=== PATIENT | female | born 1945 | race Caucasian/White ===

== ENCOUNTER 2017-10-24 11:28 | Inpatient (IN) | payer MEDICARE, MEDICAID ==
[~2017-10-24] VITALS: Ht 152.4 cm; Wt 47.7 kg
[~2017-10-24 11:28] MED LIST: ALBU18HF2; BACL10TA2; CYAN100097 PO; HYDR-3965 PO; LEVO500T2 PO; NITR0.4T48; VENL75CA61
[2017-10-24 12:04] LABS: BASOPHILS % (AUTO) 0.4 % (0-1); EOSINOPHILS # (AUTO) 0.1 X10'3 (0-0.9); HEMATOCRIT 30.7 % (35.0-45.0); HEMOGLOBIN 10.4 g/dl (12.0-16.0); LYMPHOCYTES # (AUTO) 1.6 X10'3 (1.1-4.8); LYMPHOCYTES % (AUTO) 18.8 % (21-51); MEAN CORPUSCULAR HEMOGLOBIN 29.7 PG (27.0-31.0); MEAN CORPUSCULAR HGB CONC 33.7 % (33.0-36.5); MEAN CORPUSCULAR VOLUME 88.2 FL (78-98); MEAN PLATELET VOLUME 7.7 FL (7.4-10.4); MONOCYTES # (AUTO) 0.8 X10'3 (0-0.9); NEUTROPHILS # (AUTO) 5.9 X10'3 (1.8-7.7); NEUTROPHILS % (AUTO) 70.8 % (42-75); PLATELET COUNT 232 X10'3 (140-440); RED BLOOD COUNT 3.49 X10'6 (4.20-5.60); RED CELL DISTRIBUTION WIDTH 15.4 % (11.5-14.5); WHITE BLOOD COUNT 8.4 X10'3 (4.5-11.0)
[2017-10-24 12:12] LABS: INR 1.4 INR; PARTIAL THROMBOPLASTIN TIME 32 SECONDS (22-32); PROTHROMBIN TIME 14.1 SECONDS (9.0-12.0)
[2017-10-24 12:17] LABS: ALANINE AMINOTRANSFERASE 193 U/L (12-78); ALBUMIN 3.6 G/DL (3.4-5.0); ALKALINE PHOSPHATASE 48 IU/L (46-116); ANION GAP 12 (8-16); ASPARTATE AMINO TRANSFERASE 314 U/L (10-37); BLOOD UREA NITROGEN 15 MG/DL (7-18); BUN/CREATININE RATIO 15.8 (6.6-38.0); CHLORIDE 85 MMOL/L (99-107); CREATININE 0.95 MG/DL (0.40-0.90); GLUCOSE 107 MG/DL (70-104); POTASSIUM 4.2 MMOL/L (3.5-5.1); TOTAL CARBON DIOXIDE 20.8 MMOL/L (24-32); TOTAL PROTEIN 7.3 G/DL (6.4-8.2); eGFR 58 ML/MIN
[2017-10-24 12:18] LABS: SODIUM 118 MMOL/L (135-145)
[2017-10-24] MEDS ORDERED: normal saline 1000ML IV soln IVB ONE (14:20)
[2017-10-24 14:34] LABS: LIPASE 69 U/L (73-393)
[2017-10-24] MEDS ORDERED: furosemide 10 MG/1 ML 10ml inj IV ONE (15:00)
[2017-10-24] MEDS ORDERED: demeclocycline 150mg tablet PO ONE (15:05)
[2017-10-24] MEDS ORDERED: potassium Cl 40MEQ/NS 500ml 500 ML IV PRN ×2 (16:10)
[2017-10-24] MEDS ORDERED: mag hydrox/Alum hydrox/simeth 30ml oral suspension PO PRN (16:10)
[2017-10-24] MEDS ORDERED: acetaminophen 325mg tablet PO PRN (16:10)
[2017-10-24] MEDS ORDERED: magnesium hydroxide 30ml (MOM) UD suspension PO PRN (16:10)
[2017-10-24] MEDS ORDERED: potassium Cl 20 mEq SR tablet PO PRN ×2 (16:10)
[2017-10-24] MEDS ORDERED: magnesium 4gm in 100ml NS 100 ML IV PRN (16:10)
[2017-10-24] MEDS ORDERED: magnesium 2GM in 50ml NS 50 ML IV PRN (16:10)
[2017-10-24] MEDS ORDERED: magnesium Cl slow-release 64mg tablet PO PRN (16:10)
[2017-10-24] MEDS: sodium chloride 1gm tablet PO SCH ×2 (18:21→20:42)
[2017-10-24] MEDS: normal saline 1000ml 1,000 ML IV SCH ×2 (18:22→20:44)
[2017-10-24] MEDS ORDERED: haloperidol lactate 5mg/ml inj IM PRN (18:25)
[2017-10-24] MEDS ORDERED: SINCALIDE IV PRN (18:25)
[2017-10-24] MEDS ORDERED: NORMAL SALINE IV PRN (18:25)
[2017-10-24] MEDS ORDERED: LORazepam 2 mg/ml vial IV PRN (18:25)
[2017-10-24] MEDS ORDERED: haloperidol 5mg tablet PO PRN (18:25)
[2017-10-24] MEDS ORDERED: LORazepam 1 MG tablet PO PRN (18:25)
[2017-10-24] MEDS: K and/or MAG REPLACEMENT MC SCH (18:31)
[2017-10-24 18:48] LABS: CLARITY,URINE CLEAR (Clear); COLOR,URINE YELLOW (Yellow); GLUCOSE, URINE NEGATIVE (Neg); KETONES,URINE NEGATIVE (Neg); LEUKOCYTE ESTERASE ,URINE NEGATIVE (Neg); NITRITES, URINE NEGATIVE (Neg); OCCULT BLOOD,URINE SMALL (Neg); PROTEIN,URINE TRACE mg/dl (Neg); UROBILINOGEN,URINE 0.2 E.U/dL (0.2-1.0)
[2017-10-24] MEDS: ondansetron/PF 4mg/2ml inj IV PRN (18:50)
[2017-10-24 18:51] LABS: UA COLLECTION TYPE CLN CATCH MIDSTREAM
[2017-10-24 18:58] LABS: BACTERIA,URINE 1+ /HPF (Neg); RBC,URINE 0-2 /HPF (0-2); SQUAMOUS EPITHELIAL CELL,UR FEW /LPF (FEW); WBC,URINE 0-4 /HPF (0-4)
[2017-10-24 19:00] VITALS: BP 148/84
[2017-10-24 19:14] LABS: URINE AMPHETAMINE SCREEN NEGATIVE (Neg); URINE BARBITUATE SCREEN NEGATIVE (Neg); URINE BENZODIAZEPINES SCREEN NEGATIVE (Neg); URINE CANNABINOID SCREEN NEGATIVE (Neg); URINE COCAINE SCREEN NEGATIVE (Neg); URINE METHADONE SCREEN NEGATIVE (Neg); URINE OPIATE SCREEN POSITIVE (Neg); URINE PHENCYCLIDINE SCREEN NEGATIVE (Neg)
[2017-10-24 19:51] LABS: ETHANOL < 0.010 GM/DL (0.0-0.010); SODIUM 123 MMOL/L (135-145)
[2017-10-24] MEDS: pantoprazole 40mg Tablet.DR PO SCH (20:42)
[2017-10-24] MEDS: thiamine 100mg tablet PO SCH (20:54)
[2017-10-24 23:00] VITALS: BP 146/88
[2017-10-25 03:00] VITALS: BP 143/85
[2017-10-25 03:32] LABS: BASOPHILS # (AUTO) 0.1 X10'3 (0-0.2); BASOPHILS % (AUTO) 0.9 % (0-1); EOSINOPHILS # (AUTO) 0.2 X10'3 (0-0.9); HEMATOCRIT 29.7 % (35.0-45.0); HEMOGLOBIN 9.9 g/dl (12.0-16.0); LYMPHOCYTES # (AUTO) 1.6 X10'3 (1.1-4.8); LYMPHOCYTES % (AUTO) 19.4 % (21-51); MEAN CORPUSCULAR HEMOGLOBIN 29.7 PG (27.0-31.0); MEAN CORPUSCULAR HGB CONC 33.4 % (33.0-36.5); MEAN CORPUSCULAR VOLUME 88.7 FL (78-98); MEAN PLATELET VOLUME 7.8 FL (7.4-10.4); MONOCYTES # (AUTO) 0.7 X10'3 (0-0.9); MONOCYTES % (AUTO) 9.2 % (2-12); NEUTROPHILS # (AUTO) 5.5 X10'3 (1.8-7.7); NEUTROPHILS % (AUTO) 67.5 % (42-75); PLATELET COUNT 234 X10'3 (140-440); RED BLOOD COUNT 3.35 X10'6 (4.20-5.60); WHITE BLOOD COUNT 8.1 X10'3 (4.5-11.0)
[2017-10-25 04:02] LABS: ALANINE AMINOTRANSFERASE 220 U/L (12-78); ALBUMIN 3.2 G/DL (3.4-5.0); ALKALINE PHOSPHATASE 47 IU/L (46-116); ANION GAP 10 (8-16); ASPARTATE AMINO TRANSFERASE 300 U/L (10-37); BILIRUBIN,TOTAL 0.6 MG/DL (0.1-1.0); BLOOD UREA NITROGEN 14 MG/DL (7-18); BUN/CREATININE RATIO 16.9 (6.6-38.0); CALCIUM 8.2 MG/DL (8.5-10.1); CHLORIDE 91 MMOL/L (99-107); CREATININE 0.83 MG/DL (0.40-0.90); GLUCOSE 98 MG/DL (70-104); POTASSIUM 3.7 MMOL/L (3.5-5.1); SODIUM 124 MMOL/L (135-145); TOTAL CARBON DIOXIDE 23.5 MMOL/L (24-32); TOTAL PROTEIN 6.4 G/DL (6.4-8.2); eGFR 67 ML/MIN
[2017-10-25 04:04] LABS: % IRON SATURATION 5 % (11-46); IRON 19 UG/DL (49-151); TOTAL IRON BINDING CAPACITY 402 UG/DL (259-388)
[2017-10-25 04:14] LABS: MAGNESIUM 1.5 MG/DL (1.5-2.4)
[2017-10-25 04:15] LABS: FERRITIN 41 NG/ML (8-252)
[2017-10-25 08:00] VITALS: BP 131/74
[2017-10-25] MEDS: K and/or MAG REPLACEMENT MC SCH (08:00)
[2017-10-25 11:00] VITALS: BP 140/80
[2017-10-25] MEDS: thiamine 100mg tablet PO SCH (11:18)
[2017-10-25] MEDS: pantoprazole 40mg Tablet.DR PO SCH ×2 (11:18→19:45)
[2017-10-25] MEDS: sodium chloride 1gm tablet PO SCH ×4 (11:18→19:45)
[2017-10-25] MEDS: multivitamins, therapeutics tablet PO SCH (11:18)
[2017-10-25] MEDS: demeclocycline 150mg tablet PO SCH ×2 (11:19→17:09)
[2017-10-25] MEDS: folic acid 1mg tablet PO SCH (11:19)
[2017-10-25] MEDS: enoxaparin 40mg/0.4ml syringe SUBCUT SCH (11:20)
[2017-10-25] MEDS: iron sucrose complex injection 200 MG in normal saline 100ml IV soln 100 ML IV SCH (11:34)
[2017-10-25] MEDS: normal saline 1000ml 1,000 ML IV SCH ×2 (12:09→19:46)
[2017-10-25 15:00] VITALS: BP 133/81
[2017-10-25 19:00] VITALS: BP 139/93
[2017-10-25] MEDS: ondansetron/PF 4mg/2ml inj IV PRN (22:25)
[2017-10-25] MEDS: temazepam 15mg capsule PO PRN (22:30)
[2017-10-25 23:07] VITALS: BP 140/92
[2017-10-26 01:49] LABS: BASOPHILS % (AUTO) 0.2 % (0-1); EOSINOPHILS # (AUTO) 0.2 X10'3 (0-0.9); EOSINOPHILS % (AUTO) 2.2 % (0-6); HEMATOCRIT 29.8 % (35.0-45.0); HEMOGLOBIN 9.8 g/dl (12.0-16.0); LYMPHOCYTES # (AUTO) 1.1 X10'3 (1.1-4.8); LYMPHOCYTES % (AUTO) 11.1 % (21-51); MEAN CORPUSCULAR HEMOGLOBIN 29.4 PG (27.0-31.0); MEAN CORPUSCULAR VOLUME 89.1 FL (78-98); MEAN PLATELET VOLUME 7.9 FL (7.4-10.4); MONOCYTES # (AUTO) 0.8 X10'3 (0-0.9); MONOCYTES % (AUTO) 8.2 % (2-12); NEUTROPHILS # (AUTO) 7.5 X10'3 (1.8-7.7); NEUTROPHILS % (AUTO) 78.3 % (42-75); PLATELET COUNT 225 X10'3 (140-440); RED BLOOD COUNT 3.35 X10'6 (4.20-5.60); RED CELL DISTRIBUTION WIDTH 15.6 % (11.5-14.5); WHITE BLOOD COUNT 9.6 X10'3 (4.5-11.0)
[2017-10-26 02:06] LABS: ALANINE AMINOTRANSFERASE 205 U/L (12-78); ALBUMIN/GLOBULIN RATIO 0.9 (1.1-1.5); ALKALINE PHOSPHATASE 60 IU/L (46-116); ANION GAP 9 (8-16); ASPARTATE AMINO TRANSFERASE 208 U/L (10-37); BILIRUBIN,TOTAL 0.3 MG/DL (0.1-1.0); BLOOD UREA NITROGEN 14 MG/DL (7-18); BUN/CREATININE RATIO 18.9 (6.6-38.0); CALCIUM 7.8 MG/DL (8.5-10.1); CHLORIDE 92 MMOL/L (99-107); CREATININE 0.74 MG/DL (0.40-0.90); GLUCOSE 102 MG/DL (70-104); MAGNESIUM 1.5 MG/DL (1.5-2.4); POTASSIUM 3.4 MMOL/L (3.5-5.1); SODIUM 123 MMOL/L (135-145); TOTAL CARBON DIOXIDE 22.3 MMOL/L (24-32); TOTAL PROTEIN 6.3 G/DL (6.4-8.2); eGFR 77 ML/MIN
[2017-10-26 03:00] VITALS: BP 138/88
[2017-10-26 06:00] VITALS: BP 139/85
[2017-10-26] MEDS ORDERED: furosemide 40mg/4ml inj IV ONE (07:45)
[2017-10-26] MEDS: thiamine 100mg tablet PO SCH (07:50)
[2017-10-26] MEDS: sodium chloride 1gm tablet PO SCH ×4 (07:50→21:06)
[2017-10-26] MEDS: pantoprazole 40mg Tablet.DR PO SCH (07:50)
[2017-10-26] MEDS: folic acid 1mg tablet PO SCH (07:50)
[2017-10-26] MEDS: demeclocycline 150mg tablet PO SCH ×2 (07:50→17:23)
[2017-10-26] MEDS: multivitamins, therapeutics tablet PO SCH (07:50)
[2017-10-26] MEDS: iron sucrose complex injection 200 MG in normal saline 100ml IV soln 100 ML IV SCH (07:51)
[2017-10-26] MEDS: K and/or MAG REPLACEMENT MC SCH (08:00)
[2017-10-26] MEDS: enoxaparin 40mg/0.4ml syringe SUBCUT SCH (08:00)
[2017-10-26] MEDS: normal saline 1000ml 1,000 ML IV SCH ×2 (08:09→19:33)
[2017-10-26 11:00] VITALS: BP 138/91
[2017-10-26] MEDS: TOLVAPTAN 30 MG TABLET PO SCH (13:41)
[2017-10-26 15:00] VITALS: BP 144/90
[2017-10-26 19:00] VITALS: BP 137/81
[2017-10-26] MEDS: acetaminophen 325mg tablet PO PRN (19:40)
[2017-10-26] MEDS: temazepam 15mg capsule PO PRN (21:06)
[2017-10-26 23:00] VITALS: BP 112/74
[2017-10-27 03:00] VITALS: BP 127/76
[2017-10-27 05:55] LABS: BASOPHILS % (AUTO) 0.7 % (0-1); EOSINOPHILS # (AUTO) 0.5 X10'3 (0-0.9); HEMATOCRIT 31.3 % (35.0-45.0); HEMOGLOBIN 10.3 g/dl (12.0-16.0); LYMPHOCYTES # (AUTO) 1.5 X10'3 (1.1-4.8); LYMPHOCYTES % (AUTO) 25.6 % (21-51); MEAN CORPUSCULAR HEMOGLOBIN 29.2 PG (27.0-31.0); MEAN CORPUSCULAR HGB CONC 32.9 % (33.0-36.5); MEAN CORPUSCULAR VOLUME 88.7 FL (78-98); MEAN PLATELET VOLUME 7.8 FL (7.4-10.4); MONOCYTES # (AUTO) 0.8 X10'3 (0-0.9); MONOCYTES % (AUTO) 13.7 % (2-12); NEUTROPHILS # (AUTO) 2.9 X10'3 (1.8-7.7); PLATELET COUNT 225 X10'3 (140-440); RED BLOOD COUNT 3.53 X10'6 (4.20-5.60); RED CELL DISTRIBUTION WIDTH 15.6 % (11.5-14.5); WHITE BLOOD COUNT 5.7 X10'3 (4.5-11.0)
[2017-10-27 06:00] VITALS: BP 132/76
[2017-10-27 07:07] LABS: ALANINE AMINOTRANSFERASE 161 U/L (12-78); ALBUMIN 3.1 G/DL (3.4-5.0); ALBUMIN/GLOBULIN RATIO 0.9 (1.1-1.5); ALKALINE PHOSPHATASE 64 IU/L (46-116); ANION GAP 12 (8-16); ASPARTATE AMINO TRANSFERASE 131 U/L (10-37); BILIRUBIN,TOTAL 0.3 MG/DL (0.1-1.0); BLOOD UREA NITROGEN 9 MG/DL (7-18); CALCIUM 8.7 MG/DL (8.5-10.1); CHLORIDE 98 MMOL/L (99-107); GLUCOSE 98 MG/DL (70-104); MAGNESIUM 1.4 MG/DL (1.5-2.4); POTASSIUM 3.4 MMOL/L (3.5-5.1); SODIUM 131 MMOL/L (135-145); TOTAL CARBON DIOXIDE 21.4 MMOL/L (24-32); TOTAL PROTEIN 6.4 G/DL (6.4-8.2)
[2017-10-27 07:25] LABS: BUN/CREATININE RATIO 10.2 (6.6-38.0); CREATININE 0.88 MG/DL (0.40-0.90); eGFR 63 ML/MIN
[2017-10-27] MEDS: K and/or MAG REPLACEMENT MC SCH (08:00)
[2017-10-27] MEDS: folic acid 1mg tablet PO SCH (08:06)
[2017-10-27] MEDS: thiamine 100mg tablet PO SCH (08:06)
[2017-10-27] MEDS: multivitamins, therapeutics tablet PO SCH (08:06)
[2017-10-27] MEDS: pantoprazole 40mg Tablet.DR PO SCH (08:06)
[2017-10-27] MEDS: sodium chloride 1gm tablet PO SCH (08:06)
[2017-10-27] MEDS: TOLVAPTAN 30 MG TABLET PO SCH (08:07)
[2017-10-27] MEDS: demeclocycline 150mg tablet PO SCH ×2 (08:07→16:41)
[2017-10-27] MEDS: iron sucrose complex injection 200 MG in normal saline 100ml IV soln 100 ML IV SCH (08:08)
[2017-10-27] MEDS: enoxaparin 40mg/0.4ml syringe SUBCUT SCH (08:08)
[2017-10-27] MEDS ORDERED: albuterol 2.5 MG/3 ML nebule NEB ONE (10:45)
[2017-10-27 11:00] VITALS: BP 153/90
[2017-10-27 12:11] LABS: ABG OXYGEN SATURATION 97.4 % (95-98); ABG PCO2 (T) 40.1 mmHg (32.0-45.0); ABG PH (T) 7.377 (7.350-7.450); ABG PO2 (T) 98.6 mmHg (83-108); ALLEN'S TEST Positive; FCOHb 0.3 % (0.5-1.5); FLOW 2 L/min; FMetHb 0.1 % (0.3-1.12); TOTAL HEMOGLOBIN 10.9 G/dl (12.0-16.0)
[2017-10-27 15:00] VITALS: BP 152/90
[2017-10-27 19:00] VITALS: BP 165/97
[2017-10-27] MEDS: temazepam 15mg capsule PO PRN (21:44)
[2017-10-27] MEDS: acetaminophen 325mg tablet PO PRN (21:45)
[2017-10-27 23:00] VITALS: BP 130/79
[2017-10-28 03:00] VITALS: BP 132/83
[2017-10-28 05:39] LABS: BASOPHILS % (AUTO) 0.9 % (0-1); EOSINOPHILS # (AUTO) 0.4 X10'3 (0-0.9); EOSINOPHILS % (AUTO) 7.1 % (0-6); HEMATOCRIT 28.3 % (35.0-45.0); HEMOGLOBIN 9.4 g/dl (12.0-16.0); LYMPHOCYTES # (AUTO) 1.2 X10'3 (1.1-4.8); LYMPHOCYTES % (AUTO) 22.6 % (21-51); MEAN CORPUSCULAR HEMOGLOBIN 29.4 PG (27.0-31.0); MEAN CORPUSCULAR HGB CONC 33.3 % (33.0-36.5); MEAN CORPUSCULAR VOLUME 88.4 FL (78-98); MEAN PLATELET VOLUME 7.5 FL (7.4-10.4); MONOCYTES # (AUTO) 0.7 X10'3 (0-0.9); MONOCYTES % (AUTO) 14.1 % (2-12); NEUTROPHILS # (AUTO) 2.9 X10'3 (1.8-7.7); NEUTROPHILS % (AUTO) 55.3 % (42-75); PLATELET COUNT 225 X10'3 (140-440); RED CELL DISTRIBUTION WIDTH 15.8 % (11.5-14.5); WHITE BLOOD COUNT 5.3 X10'3 (4.5-11.0)
[2017-10-28 06:00] VITALS: BP 148/99
[2017-10-28 06:44] LABS: ALANINE AMINOTRANSFERASE 133 U/L (12-78); ALKALINE PHOSPHATASE 48 IU/L (46-116); ANION GAP 8 (8-16); ASPARTATE AMINO TRANSFERASE 88 U/L (10-37); BILIRUBIN,TOTAL 0.4 MG/DL (0.1-1.0); BLOOD UREA NITROGEN 7 MG/DL (7-18); CALCIUM 8.8 MG/DL (8.5-10.1); CHLORIDE 105 MMOL/L (99-107); GLUCOSE 98 MG/DL (70-104); MAGNESIUM 1.6 MG/DL (1.5-2.4); PHOSPHORUS 3.5 MG/DL (2.3-4.5); POTASSIUM 3.3 MMOL/L (3.5-5.1); SODIUM 142 MMOL/L (135-145); TOTAL CARBON DIOXIDE 28.6 MMOL/L (24-32); TOTAL PROTEIN 6.1 G/DL (6.4-8.2); eGFR 82 ML/MIN
[2017-10-28] MEDS: thiamine 100mg tablet PO SCH (07:54)
[2017-10-28] MEDS: iron sucrose complex injection 200 MG in normal saline 100ml IV soln 100 ML IV SCH (07:54)
[2017-10-28] MEDS: enoxaparin 40mg/0.4ml syringe SUBCUT SCH (07:54)
[2017-10-28] MEDS: folic acid 1mg tablet PO SCH (07:55)
[2017-10-28] MEDS: pantoprazole 40mg Tablet.DR PO SCH (07:55)
[2017-10-28] MEDS: multivitamins, therapeutics tablet PO SCH (07:55)
[2017-10-28] MEDS: demeclocycline 150mg tablet PO SCH (07:56)
[2017-10-28] MEDS: K and/or MAG REPLACEMENT MC SCH (08:00)
[2017-10-28] MEDS ORDERED: PANT40TA4 PO (08:38)
[2017-10-28] MEDS ORDERED: POTA20TA10 PO (08:59)
[2017-10-28] MEDS ORDERED: potassium Cl 20 mEq SR tablet PO STA (10:05)
[2017-10-28] MEDS: acetaminophen 325mg tablet PO PRN (12:02)
== END 2017-10-28 13:15 | disposition home health service (06) | DRG 445 ==
LOC: ER 11:28 → ED HOLD 16:09 → PCU 3S 19:03
PROVIDERS: ADMIT Family Medicine; ATTEND Internal Medicine
PROC: CF141ZZ Planar Nuclear Medicine Imaging of Gallbladder using Technetium 99m (Tc-99m) (ICD-10-PCS; principal; 2017-10-25)
DX: K81.0 Acute cholecystitis (principal); E22.2 Syndrome of inappropriate secretion of antidiuretic hormone; F10.10 Alcohol abuse, uncomplicated; R91.8 Other nonspecific abnormal finding of lung field; K29.00 Acute gastritis without bleeding; D64.9 Anemia, unspecified; E61.1 Iron deficiency; E86.0 Dehydration; I12.9 Hypertensive chronic kidney disease with stage 1 through stage 4 chronic kidney disease, or unspecified chronic kidney disease; I25.10 Atherosclerotic heart disease of native coronary artery without angina pectoris; J45.909 Unspecified asthma, uncomplicated; F32.9 Major depressive disorder, single episode, unspecified; R74.0 Nonspecific elevation of levels of transaminase and lactic acid dehydrogenase [LDH]; K21.9 Gastro-esophageal reflux disease without esophagitis; K76.0 Fatty (change of) liver, not elsewhere classified; M06.9 Rheumatoid arthritis, unspecified; N18.9 Chronic kidney disease, unspecified; Z60.2 Problems related to living alone; Z66 Do not resuscitate; Z91.012 Allergy to eggs; Z88.8 Allergy status to other drugs, medicaments and biological substances; Z91.018 Allergy to other foods; Z88.6 Allergy status to analgesic agent; Z79.899 Other long term (current) drug therapy; Z87.11 Personal history of peptic ulcer disease; Z80.51 Family history of malignant neoplasm of kidney; Z82.5 Family history of asthma and other chronic lower respiratory diseases
CPT/HCPCS: 36415; 36600; 71045; 76700; 78227; 80053; 80305; 80320; 81001; 82607; 82728; 82746; 82803; 83540; 83550; 83690; 83735; 84100; 84295; 84484; 85018; 85025; 85610; 85730; 87070; 93005; 96361; 96374; 97116; 97161; 97530; 99285; A9537; J1650; J1940; J2405; J2805; J7030; J7040

== ENCOUNTER 2017-11-08 06:42 | Inpatient (IN) | payer MEDICARE, MEDICAID ==
[~2017-11-08] VITALS: Ht 165.1 cm; Wt 78.9 kg
[~2017-11-08 06:42] MED LIST changes: -BACL10TA2; -LEVO500T2 PO; +PANT40TA4 PO; +POTA20TA10 PO; -VENL75CA61
[2017-11-08 07:36] LABS: BASOPHILS % (AUTO) 0.7 % (0-1); EOSINOPHILS # (AUTO) 0.1 X10'3 (0-0.9); EOSINOPHILS % (AUTO) 1.8 % (0-6); HEMATOCRIT 33.5 % (35.0-45.0); HEMOGLOBIN 11.3 g/dl (12.0-16.0); LYMPHOCYTES % (AUTO) 18.1 % (21-51); MEAN CORPUSCULAR HEMOGLOBIN 30.5 PG (27.0-31.0); MEAN CORPUSCULAR HGB CONC 33.9 % (33.0-36.5); MEAN CORPUSCULAR VOLUME 89.9 FL (78-98); MEAN PLATELET VOLUME 8.2 FL (7.4-10.4); MONOCYTES # (AUTO) 0.3 X10'3 (0-0.9); MONOCYTES % (AUTO) 6.3 % (2-12); NEUTROPHILS # (AUTO) 3.8 X10'3 (1.8-7.7); NEUTROPHILS % (AUTO) 73.1 % (42-75); PLATELET COUNT 231 X10'3 (140-440); RED BLOOD COUNT 3.72 X10'6 (4.20-5.60); RED CELL DISTRIBUTION WIDTH 18.6 % (11.5-14.5); WHITE BLOOD COUNT 5.3 X10'3 (4.5-11.0)
[2017-11-08 07:42] LABS: CLARITY,URINE SLIGHTLY CLOUDY (Clear); COLOR,URINE YELLOW (Yellow); GLUCOSE, URINE NEGATIVE (Neg); KETONES,URINE TRACE mg/dl (Neg); LEUKOCYTE ESTERASE ,URINE LARGE (Neg); NITRITES, URINE POSITIVE (Neg); OCCULT BLOOD,URINE SMALL (Neg); PROTEIN,URINE TRACE mg/dl (Neg); UROBILINOGEN,URINE 0.2 E.U/dL (0.2-1.0)
[2017-11-08 07:43] LABS: UA COLLECTION TYPE OTHER
[2017-11-08 07:45] LABS: INR 1.3 INR; PARTIAL THROMBOPLASTIN TIME 33 SECONDS (22-32); PROTHROMBIN TIME 13.6 SECONDS (9.0-12.0)
[2017-11-08 07:49] LABS: WBC,URINE 50-100 /HPF (0-4)
[2017-11-08 07:50] LABS: BACTERIA,URINE 3+ /HPF (Neg); MUCUS STRANDS NONE SEEN /LPF (Neg); SQUAMOUS EPITHELIAL CELL,UR MODERATE /LPF (FEW)
[2017-11-08 07:52] LABS: URINE AMPHETAMINE SCREEN NEGATIVE (Neg); URINE BARBITUATE SCREEN NEGATIVE (Neg); URINE BENZODIAZEPINES SCREEN NEGATIVE (Neg); URINE CANNABINOID SCREEN NEGATIVE (Neg); URINE COCAINE SCREEN NEGATIVE (Neg); URINE METHADONE SCREEN NEGATIVE (Neg); URINE OPIATE SCREEN NEGATIVE (Neg); URINE PHENCYCLIDINE SCREEN NEGATIVE (Neg)
[2017-11-08 07:54] LABS: ALANINE AMINOTRANSFERASE 269 U/L (12-78); ALBUMIN 3.5 G/DL (3.4-5.0); ALBUMIN/GLOBULIN RATIO 1.1 (1.1-1.5); ALKALINE PHOSPHATASE 81 IU/L (46-116); ANION GAP 11 (8-16); ASPARTATE AMINO TRANSFERASE 170 U/L (10-37); BILIRUBIN,TOTAL 1.4 MG/DL (0.1-1.0); BLOOD UREA NITROGEN 4 MG/DL (7-18); BUN/CREATININE RATIO 5.2 (6.6-38.0); CALCIUM 8.8 MG/DL (8.5-10.1); CHLORIDE 82 MMOL/L (99-107); CREATININE 0.77 MG/DL (0.40-0.90); ETHANOL < 0.010 GM/DL (0.0-0.010); GLUCOSE 118 MG/DL (70-104); POTASSIUM 3.5 MMOL/L (3.5-5.1); TOTAL CARBON DIOXIDE 24.1 MMOL/L (24-32); TOTAL PROTEIN 6.8 G/DL (6.4-8.2); TROPONIN I < 0.04 NG/ML (0.0-0.05); eGFR 73 ML/MIN
[2017-11-08 07:58] LABS: SODIUM 117 MMOL/L (135-145)
[2017-11-08] MEDS ORDERED: normal saline 1000ml 1,000 ML IV ONE (08:10)
[2017-11-08] MEDS ORDERED: CefTRIAXone 2gm/D5W 50ml 50 ML IV ONE (08:35)
[2017-11-08] MEDS: normal saline 1000ml 1,000 ML IV SCH ×2 (08:56→18:02)
[2017-11-08] MEDS ORDERED: acetaminophen 325mg tablet PO PRN (09:00)
[2017-11-08] MEDS ORDERED: magnesium 1gm/100ml D5W IVPB 50 ML IV PRN (09:00)
[2017-11-08] MEDS ORDERED: potassium Cl 20 mEq SR tablet PO PRN (09:00)
[2017-11-08] MEDS ORDERED: magnesium 4gm in 100ml NS 100 ML IV PRN (09:00)
[2017-11-08] MEDS ORDERED: mag hydrox/Alum hydrox/simeth 30ml oral suspension PO PRN (09:00)
[2017-11-08] MEDS ORDERED: potassium Cl 40MEQ/NS 500ml 500 ML IV PRN ×2 (09:00)
[2017-11-08] MEDS ORDERED: magnesium hydroxide 30ml (MOM) UD suspension PO PRN (09:00)
[2017-11-08 09:31] LABS: OSMOLALITY 238 MOSM/K (280-300)
[2017-11-08] MEDS ORDERED: OMEP-50 PO (10:01)
[2017-11-08] MEDS ORDERED: VENL75CA61 PO (10:01)
[2017-11-08] MEDS ORDERED: PANT40TA4 PO (11:21)
[2017-11-08] MEDS ORDERED: FLUT1DIS4 INH (11:25)
[2017-11-08] MEDS ORDERED: POTA20PA3 PO (11:26)
[2017-11-08] MEDS ORDERED: ONDA4TAB12 PO (11:26)
[2017-11-08] MEDS ORDERED: furosemide 20 MG/2 ML vial IV ONE (12:00)
[2017-11-08 12:24] VITALS: BP 130/91
[2017-11-08 15:01] LABS: OSMOLALITY UA 121 MOSM/K (50-1400)
[2017-11-08 15:06] LABS: SODIUM,URINE RANDOM 36 MEQ/L
[2017-11-08 16:41] VITALS: BP 137/79
[2017-11-08 19:00] VITALS: BP 113/73
[2017-11-08] MEDS: heparin, porcine 5000 units/ml vial SQ SCH (19:57)
[2017-11-08 23:00] VITALS: BP 129/80
[2017-11-09 02:12] LABS: BASOPHILS % (AUTO) 0.4 % (0-1); EOSINOPHILS # (AUTO) 0.2 X10'3 (0-0.9); EOSINOPHILS % (AUTO) 4.3 % (0-6); HEMOGLOBIN 10.5 g/dl (12.0-16.0); LYMPHOCYTES % (AUTO) 21.6 % (21-51); MEAN CORPUSCULAR HGB CONC 32.8 % (33.0-36.5); MEAN CORPUSCULAR VOLUME 91.2 FL (78-98); MEAN PLATELET VOLUME 8.4 FL (7.4-10.4); MONOCYTES # (AUTO) 0.4 X10'3 (0-0.9); MONOCYTES % (AUTO) 7.8 % (2-12); NEUTROPHILS # (AUTO) 3.1 X10'3 (1.8-7.7); NEUTROPHILS % (AUTO) 65.9 % (42-75); PLATELET COUNT 216 X10'3 (140-440); RED BLOOD COUNT 3.51 X10'6 (4.20-5.60); RED CELL DISTRIBUTION WIDTH 19.1 % (11.5-14.5); WHITE BLOOD COUNT 4.6 X10'3 (4.5-11.0)
[2017-11-09 02:14] LABS: ALANINE AMINOTRANSFERASE 194 U/L (12-78); ALBUMIN 2.9 G/DL (3.4-5.0); ALKALINE PHOSPHATASE 71 IU/L (46-116); ANION GAP 8 (8-16); ASPARTATE AMINO TRANSFERASE 103 U/L (10-37); BILIRUBIN,TOTAL 0.7 MG/DL (0.1-1.0); BLOOD UREA NITROGEN 5 MG/DL (7-18); BUN/CREATININE RATIO 7.4 (6.6-38.0); CALCIUM 7.9 MG/DL (8.5-10.1); CHLORIDE 91 MMOL/L (99-107); CREATININE 0.68 MG/DL (0.40-0.90); GLUCOSE 116 MG/DL (70-104); MAGNESIUM 1.3 MG/DL (1.5-2.4); POTASSIUM 3.3 MMOL/L (3.5-5.1); SODIUM 126 MMOL/L (135-145); TOTAL CARBON DIOXIDE 27.1 MMOL/L (24-32); TOTAL PROTEIN 5.9 G/DL (6.4-8.2); eGFR 85 ML/MIN
[2017-11-09 03:00] VITALS: BP 132/75
[2017-11-09 06:59] VITALS: BP 132/77
[2017-11-09] MEDS: potassium Cl 20 mEq SR tablet PO PRN ×3 (07:04→17:05)
[2017-11-09] MEDS: normal saline 1000ml 1,000 ML IV SCH ×2 (07:05→23:54)
[2017-11-09] MEDS: magnesium Cl slow-release 64mg tablet PO PRN ×2 (07:08→17:05)
[2017-11-09] MEDS: CefTRIAXone/D5W-Rocephin 1gm 50 ML IV SCH (07:09)
[2017-11-09] MEDS: heparin, porcine 5000 units/ml vial SQ SCH ×2 (07:09→19:56)
[2017-11-09] MEDS ORDERED: MESSAGE TO NURSING PO ONE (08:00)
[2017-11-09] MEDS: azithromycin/NS 500mg/250ml 250 ML IV SCH (08:00)
[2017-11-09] MEDS: K and/or MAG REPLACEMENT MC SCH (08:00)
[2017-11-09] MEDS: pantoprazole 40mg Tablet.DR PO SCH (08:30)
[2017-11-09] MEDS: venlafaxine XR 75mg capsule (Q24H) PO SCH (08:30)
[2017-11-09] MEDS: albuterol 2.5 MG/3 ML nebule NEB SCH ×3 (10:45→19:46)
[2017-11-09 11:00] VITALS: BP 103/77
[2017-11-09 15:00] VITALS: BP 122/87
[2017-11-09 19:00] VITALS: BP 126/83
[2017-11-09] MEDS: budesonide 0.5mg/2ml UD nebule IH SCH (19:46)
[2017-11-09] MEDS: lactobacillus rhamnosus 10,000 MMU CELLS/CAPSULE PO SCH (19:56)
[2017-11-09] MEDS ORDERED: non-formulary drug (Fluticasone/Salmeterol (Advair 250-50 Diskus) 1 PUFFS) INH SCH (20:00)
[2017-11-09 23:00] VITALS: BP 127/89
[2017-11-10] VITALS (7 sets, daily range): BP systolic 85–141; BP diastolic 50–94
[2017-11-10 02:04] LABS: BASOPHILS % (AUTO) 0.7 % (0-1); EOSINOPHILS # (AUTO) 0.2 X10'3 (0-0.9); EOSINOPHILS % (AUTO) 3.3 % (0-6); HEMATOCRIT 34.7 % (35.0-45.0); HEMOGLOBIN 11.4 g/dl (12.0-16.0); LYMPHOCYTES # (AUTO) 1.4 X10'3 (1.1-4.8); LYMPHOCYTES % (AUTO) 24.1 % (21-51); MEAN CORPUSCULAR HGB CONC 32.8 % (33.0-36.5); MEAN CORPUSCULAR VOLUME 91.4 FL (78-98); MEAN PLATELET VOLUME 8.6 FL (7.4-10.4); MONOCYTES # (AUTO) 0.5 X10'3 (0-0.9); MONOCYTES % (AUTO) 8.3 % (2-12); NEUTROPHILS # (AUTO) 3.7 X10'3 (1.8-7.7); NEUTROPHILS % (AUTO) 63.6 % (42-75); PLATELET COUNT 221 X10'3 (140-440); RED BLOOD COUNT 3.79 X10'6 (4.20-5.60); RED CELL DISTRIBUTION WIDTH 18.4 % (11.5-14.5); WHITE BLOOD COUNT 5.8 X10'3 (4.5-11.0)
[2017-11-10 02:13] LABS: ALANINE AMINOTRANSFERASE 185 U/L (12-78); ALBUMIN 3.2 G/DL (3.4-5.0); ALBUMIN/GLOBULIN RATIO 0.9 (1.1-1.5); ALKALINE PHOSPHATASE 85 IU/L (46-116); ANION GAP 9 (8-16); ASPARTATE AMINO TRANSFERASE 75 U/L (10-37); BILIRUBIN,TOTAL 0.5 MG/DL (0.1-1.0); BLOOD UREA NITROGEN 6 MG/DL (7-18); CALCIUM 8.9 MG/DL (8.5-10.1); CHLORIDE 94 MMOL/L (99-107); CREATININE 0.75 MG/DL (0.40-0.90); GLUCOSE 123 MG/DL (70-104); MAGNESIUM 1.6 MG/DL (1.5-2.4); POTASSIUM 4.2 MMOL/L (3.5-5.1); SODIUM 126 MMOL/L (135-145); TOTAL CARBON DIOXIDE 23.1 MMOL/L (24-32); TOTAL PROTEIN 6.6 G/DL (6.4-8.2); eGFR 76 ML/MIN
[2017-11-10] MEDS: lactobacillus rhamnosus 10,000 MMU CELLS/CAPSULE PO SCH ×2 (07:32→20:19)
[2017-11-10] MEDS: venlafaxine XR 75mg capsule (Q24H) PO SCH (07:32)
[2017-11-10] MEDS: pantoprazole 40mg Tablet.DR PO SCH (07:32)
[2017-11-10] MEDS: CefTRIAXone/D5W-Rocephin 1gm 50 ML IV SCH (07:32)
[2017-11-10] MEDS: heparin, porcine 5000 units/ml vial SQ SCH ×2 (07:33→20:19)
[2017-11-10] MEDS: azithromycin/NS 500mg/250ml 250 ML IV SCH (07:33)
[2017-11-10] MEDS: albuterol 2.5 MG/3 ML nebule NEB SCH ×4 (07:37→19:35)
[2017-11-10] MEDS: budesonide 0.5mg/2ml UD nebule IH SCH ×2 (07:37→20:00)
[2017-11-10] MEDS: K and/or MAG REPLACEMENT MC SCH (08:00)
[2017-11-10] MEDS: ondansetron/PF 4mg/2ml inj IV PRN (11:28)
[2017-11-10] MEDS: normal saline 1000ml 1,000 ML IV SCH (16:48)
[2017-11-11] MEDS: normal saline 1000ml 1,000 ML IV SCH (01:21)
[2017-11-11 02:00] VITALS: BP 145/92
[2017-11-11 05:45] LABS: BASOPHILS % (AUTO) 0.8 % (0-1); EOSINOPHILS # (AUTO) 0.2 X10'3 (0-0.9); LYMPHOCYTES # (AUTO) 1.3 X10'3 (1.1-4.8); LYMPHOCYTES % (AUTO) 24.8 % (21-51); MEAN CORPUSCULAR HEMOGLOBIN 29.4 PG (27.0-31.0); MEAN CORPUSCULAR HGB CONC 32.4 % (33.0-36.5); MEAN CORPUSCULAR VOLUME 90.7 FL (78-98); MEAN PLATELET VOLUME 8.3 FL (7.4-10.4); MONOCYTES # (AUTO) 0.4 X10'3 (0-0.9); NEUTROPHILS # (AUTO) 3.4 X10'3 (1.8-7.7); NEUTROPHILS % (AUTO) 63.4 % (42-75); PLATELET COUNT 212 X10'3 (140-440); RED BLOOD COUNT 3.75 X10'6 (4.20-5.60); RED CELL DISTRIBUTION WIDTH 19.3 % (11.5-14.5); WHITE BLOOD COUNT 5.3 X10'3 (4.5-11.0)
[2017-11-11 06:00] VITALS: BP 132/90
[2017-11-11 06:15] LABS: ANION GAP 10 (8-16); BLOOD UREA NITROGEN 8 MG/DL (7-18); BUN/CREATININE RATIO 10.3 (6.6-38.0); CHLORIDE 96 MMOL/L (99-107); CREATININE 0.78 MG/DL (0.40-0.90); GLUCOSE 115 MG/DL (70-104); POTASSIUM 4.3 MMOL/L (3.5-5.1); SODIUM 129 MMOL/L (135-145); TOTAL CARBON DIOXIDE 22.9 MMOL/L (24-32)
[2017-11-11 06:16] LABS: ALANINE AMINOTRANSFERASE 152 U/L (12-78); ALBUMIN 3.2 G/DL (3.4-5.0); ALBUMIN/GLOBULIN RATIO 0.9 (1.1-1.5); ALKALINE PHOSPHATASE 67 IU/L (46-116); ASPARTATE AMINO TRANSFERASE 56 U/L (10-37); BILIRUBIN,TOTAL 0.5 MG/DL (0.1-1.0); CALCIUM 8.6 MG/DL (8.5-10.1); MAGNESIUM 1.5 MG/DL (1.5-2.4); TOTAL PROTEIN 6.6 G/DL (6.4-8.2); eGFR 72 ML/MIN
[2017-11-11] MEDS: K and/or MAG REPLACEMENT MC SCH (08:00)
[2017-11-11] MEDS: budesonide 0.5mg/2ml UD nebule IH SCH ×2 (08:15→20:40)
[2017-11-11] MEDS: albuterol 2.5 MG/3 ML nebule NEB SCH ×4 (08:15→20:41)
[2017-11-11] MEDS: venlafaxine XR 75mg capsule (Q24H) PO SCH (09:22)
[2017-11-11] MEDS: lactobacillus rhamnosus 10,000 MMU CELLS/CAPSULE PO SCH ×2 (09:22→20:33)
[2017-11-11] MEDS: pantoprazole 40mg Tablet.DR PO SCH (09:22)
[2017-11-11] MEDS: heparin, porcine 5000 units/ml vial SQ SCH ×2 (09:22→20:34)
[2017-11-11] MEDS: CefTRIAXone/D5W-Rocephin 1gm 50 ML IV SCH (10:19)
[2017-11-11 11:00] VITALS: BP 132/87
[2017-11-11] MEDS: azithromycin/NS 500mg/250ml 250 ML IV SCH (11:20)
[2017-11-11] MEDS: HYDROcodone/acetaminophen 5mg/325mg tablet PO PRN (13:47)
[2017-11-11 15:00] VITALS: BP 123/92
[2017-11-11 18:00] VITALS: BP 126/92
[2017-11-11] MEDS: ampicillin inj 2 GM in normal saline 100ml IV soln 100 ML IV SCH (20:33)
[2017-11-11 22:00] VITALS: BP 128/90
[2017-11-12 02:00] VITALS: BP 128/89
[2017-11-12] MEDS: ampicillin inj 2 GM in normal saline 100ml IV soln 100 ML IV SCH ×4 (02:15→20:07)
[2017-11-12 05:37] LABS: EOSINOPHILS # (AUTO) 0.1 X10'3 (0-0.9); EOSINOPHILS % (AUTO) 2.5 % (0-6); HEMATOCRIT 32.5 % (35.0-45.0); HEMOGLOBIN 10.7 g/dl (12.0-16.0); LYMPHOCYTES # (AUTO) 1.2 X10'3 (1.1-4.8); LYMPHOCYTES % (AUTO) 28.7 % (21-51); MEAN CORPUSCULAR HEMOGLOBIN 29.9 PG (27.0-31.0); MEAN CORPUSCULAR HGB CONC 32.9 % (33.0-36.5); MEAN CORPUSCULAR VOLUME 90.7 FL (78-98); MEAN PLATELET VOLUME 8.6 FL (7.4-10.4); MONOCYTES # (AUTO) 0.4 X10'3 (0-0.9); MONOCYTES % (AUTO) 10.5 % (2-12); NEUTROPHILS # (AUTO) 2.4 X10'3 (1.8-7.7); NEUTROPHILS % (AUTO) 57.3 % (42-75); PLATELET COUNT 203 X10'3 (140-440); RED BLOOD COUNT 3.58 X10'6 (4.20-5.60); RED CELL DISTRIBUTION WIDTH 19.3 % (11.5-14.5); WHITE BLOOD COUNT 4.1 X10'3 (4.5-11.0)
[2017-11-12 06:04] LABS: ALANINE AMINOTRANSFERASE 132 U/L (12-78); ALBUMIN 3.2 G/DL (3.4-5.0); ALBUMIN/GLOBULIN RATIO 0.9 (1.1-1.5); ALKALINE PHOSPHATASE 61 IU/L (46-116); ANION GAP 12 (8-16); ASPARTATE AMINO TRANSFERASE 49 U/L (10-37); BILIRUBIN,TOTAL 0.5 MG/DL (0.1-1.0); BLOOD UREA NITROGEN 10 MG/DL (7-18); BUN/CREATININE RATIO 11.2 (6.6-38.0); CALCIUM 8.7 MG/DL (8.5-10.1); CHLORIDE 95 MMOL/L (99-107); CREATININE 0.89 MG/DL (0.40-0.90); GLUCOSE 111 MG/DL (70-104); MAGNESIUM 1.5 MG/DL (1.5-2.4); POTASSIUM 4.6 MMOL/L (3.5-5.1); SODIUM 129 MMOL/L (135-145); TOTAL CARBON DIOXIDE 22.3 MMOL/L (24-32); TOTAL PROTEIN 6.6 G/DL (6.4-8.2); eGFR 62 ML/MIN
[2017-11-12 07:00] VITALS: BP 141/80
[2017-11-12] MEDS: K and/or MAG REPLACEMENT MC SCH (08:00)
[2017-11-12] MEDS: albuterol 2.5 MG/3 ML nebule NEB SCH ×4 (09:03→20:12)
[2017-11-12] MEDS: budesonide 0.5mg/2ml UD nebule IH SCH ×2 (09:03→20:12)
[2017-11-12] MEDS: lactobacillus rhamnosus 10,000 MMU CELLS/CAPSULE PO SCH ×2 (10:23→20:07)
[2017-11-12] MEDS: pantoprazole 40mg Tablet.DR PO SCH (10:23)
[2017-11-12] MEDS: azithromycin 250mg tablet PO SCH (10:23)
[2017-11-12] MEDS: CefTRIAXone/D5W-Rocephin 1gm 50 ML IV SCH (10:23)
[2017-11-12] MEDS: venlafaxine XR 75mg capsule (Q24H) PO SCH (10:24)
[2017-11-12] MEDS: heparin, porcine 5000 units/ml vial SQ SCH ×2 (10:31→20:07)
[2017-11-12] MEDS: HYDROcodone/acetaminophen 5mg/325mg tablet PO PRN ×2 (10:50→20:07)
[2017-11-12 11:00] VITALS: BP 140/99
[2017-11-12 15:00] VITALS: BP 133/99
[2017-11-12 19:00] VITALS: BP 166/97
[2017-11-12] MEDS ORDERED: furosemide 20 MG/2 ML vial IV ONE (21:20)
[2017-11-12 23:00] VITALS: BP 137/93
[2017-11-13] MEDS: HYDROcodone/acetaminophen 5mg/325mg tablet PO PRN ×2 (00:48→08:56)
[2017-11-13] MEDS: ampicillin inj 2 GM in normal saline 100ml IV soln 100 ML IV SCH ×5 (02:12→19:59)
[2017-11-13 03:00] VITALS: BP 152/86
[2017-11-13 05:56] LABS: ALANINE AMINOTRANSFERASE 121 U/L (12-78); ALBUMIN 3.2 G/DL (3.4-5.0); ALKALINE PHOSPHATASE 64 IU/L (46-116); ANION GAP 14 (8-16); ASPARTATE AMINO TRANSFERASE 56 U/L (10-37); BILIRUBIN,TOTAL 0.5 MG/DL (0.1-1.0); BLOOD UREA NITROGEN 12 MG/DL (7-18); BUN/CREATININE RATIO 9.1 (6.6-38.0); CHLORIDE 94 MMOL/L (99-107); CREATININE 1.32 MG/DL (0.40-0.90); GLUCOSE 111 MG/DL (70-104); MAGNESIUM 1.7 MG/DL (1.5-2.4); POTASSIUM 4.9 MMOL/L (3.5-5.1); SODIUM 128 MMOL/L (135-145); TOTAL CARBON DIOXIDE 20.4 MMOL/L (24-32); TOTAL PROTEIN 6.5 G/DL (6.4-8.2); eGFR 39 ML/MIN
[2017-11-13 06:05] LABS: BASOPHILS % (AUTO) 0.8 % (0-1); EOSINOPHILS # (AUTO) 0.1 X10'3 (0-0.9); EOSINOPHILS % (AUTO) 1.5 % (0-6); HEMATOCRIT 34.3 % (35.0-45.0); HEMOGLOBIN 11.1 g/dl (12.0-16.0); LYMPHOCYTES # (AUTO) 1.6 X10'3 (1.1-4.8); LYMPHOCYTES % (AUTO) 27.4 % (21-51); MEAN CORPUSCULAR HEMOGLOBIN 29.7 PG (27.0-31.0); MEAN CORPUSCULAR HGB CONC 32.5 % (33.0-36.5); MEAN CORPUSCULAR VOLUME 91.3 FL (78-98); MEAN PLATELET VOLUME 8.2 FL (7.4-10.4); MONOCYTES # (AUTO) 0.8 X10'3 (0-0.9); MONOCYTES % (AUTO) 14.1 % (2-12); NEUTROPHILS # (AUTO) 3.3 X10'3 (1.8-7.7); NEUTROPHILS % (AUTO) 56.2 % (42-75); PLATELET COUNT 195 X10'3 (140-440); RED BLOOD COUNT 3.75 X10'6 (4.20-5.60); RED CELL DISTRIBUTION WIDTH 19.3 % (11.5-14.5); WHITE BLOOD COUNT 5.8 X10'3 (4.5-11.0)
[2017-11-13 07:07] VITALS: BP 133/91
[2017-11-13] MEDS: albuterol 2.5 MG/3 ML nebule NEB SCH ×4 (07:52→19:00)
[2017-11-13] MEDS: budesonide 0.5mg/2ml UD nebule IH SCH ×2 (07:52→20:00)
[2017-11-13] MEDS: K and/or MAG REPLACEMENT MC SCH (08:00)
[2017-11-13] MEDS: CefTRIAXone/D5W-Rocephin 1gm 50 ML IV SCH (08:54)
[2017-11-13] MEDS: heparin, porcine 5000 units/ml vial SQ SCH ×2 (08:55→19:58)
[2017-11-13] MEDS: venlafaxine XR 75mg capsule (Q24H) PO SCH (08:56)
[2017-11-13] MEDS: azithromycin 250mg tablet PO SCH (08:56)
[2017-11-13] MEDS: pantoprazole 40mg Tablet.DR PO SCH (08:56)
[2017-11-13] MEDS: lactobacillus rhamnosus 10,000 MMU CELLS/CAPSULE PO SCH ×2 (08:57→19:58)
[2017-11-13 11:00] VITALS: BP 124/81
[2017-11-13 15:00] VITALS: BP 127/87
[2017-11-13 19:00] VITALS: BP 128/82
[2017-11-13 23:00] VITALS: BP 127/80
[2017-11-14] MEDS: ampicillin inj 2 GM in normal saline 100ml IV soln 100 ML IV SCH ×4 (01:19→19:40)
[2017-11-14 02:23] VITALS: BP 130/87
[2017-11-14] MEDS: HYDROcodone/acetaminophen 5mg/325mg tablet PO PRN ×3 (04:57→19:41)
[2017-11-14 05:30] VITALS: BP 129/89
[2017-11-14] MEDS: albuterol 2.5 MG/3 ML nebule NEB SCH ×4 (06:45→20:25)
[2017-11-14] MEDS: budesonide 0.5mg/2ml UD nebule IH SCH ×2 (06:45→20:25)
[2017-11-14] MEDS: K and/or MAG REPLACEMENT MC SCH (08:00)
[2017-11-14] MEDS: venlafaxine XR 75mg capsule (Q24H) PO SCH (08:47)
[2017-11-14] MEDS: pantoprazole 40mg Tablet.DR PO SCH (08:47)
[2017-11-14] MEDS: lactobacillus rhamnosus 10,000 MMU CELLS/CAPSULE PO SCH ×2 (08:47→19:40)
[2017-11-14] MEDS: heparin, porcine 5000 units/ml vial SQ SCH ×2 (08:48→19:41)
[2017-11-14] MEDS: azithromycin 250mg tablet PO SCH (08:48)
[2017-11-14] MEDS: CefTRIAXone/D5W-Rocephin 1gm 50 ML IV SCH (10:09)
[2017-11-14 11:00] VITALS: BP 139/89
[2017-11-14 12:23] LABS: ALBUMIN 3.1 G/DL (3.4-5.0); ANION GAP 9 (8-16); BLOOD UREA NITROGEN 19 MG/DL (7-18); BUN/CREATININE RATIO 8.2 (6.6-38.0); CALCIUM 9.3 MG/DL (8.5-10.1); CHLORIDE 93 MMOL/L (99-107); CREATININE 2.33 MG/DL (0.40-0.90); GLUCOSE 118 MG/DL (70-104); POTASSIUM 4.8 MMOL/L (3.5-5.1); SODIUM 126 MMOL/L (135-145); eGFR 20 ML/MIN
[2017-11-14 15:00] VITALS: BP 164/68
[2017-11-14 19:00] VITALS: BP 123/81
[2017-11-14] MEDS: sodium chloride 1gm tablet PO SCH (19:40)
[2017-11-14 23:00] VITALS: BP 134/88
[2017-11-15] MEDS: HYDROcodone/acetaminophen 5mg/325mg tablet PO PRN ×2 (00:07→20:12)
[2017-11-15] MEDS: ampicillin inj 2 GM in normal saline 100ml IV soln 100 ML IV SCH ×4 (02:21→20:11)
[2017-11-15 03:00] VITALS: BP 128/80
[2017-11-15 05:30] VITALS: BP 137/85
[2017-11-15 06:32] LABS: ALBUMIN 3.1 G/DL (3.4-5.0); ANION GAP 12 (8-16); BLOOD UREA NITROGEN 20 MG/DL (7-18); BUN/CREATININE RATIO 7.1 (6.6-38.0); CALCIUM 9.2 MG/DL (8.5-10.1); CHLORIDE 93 MMOL/L (99-107); CREATININE 2.81 MG/DL (0.40-0.90); GLUCOSE 94 MG/DL (70-104); MAGNESIUM 1.6 MG/DL (1.5-2.4); SODIUM 126 MMOL/L (135-145); TOTAL CARBON DIOXIDE 20.7 MMOL/L (24-32); eGFR 16 ML/MIN
[2017-11-15] MEDS: budesonide 0.5mg/2ml UD nebule IH SCH ×2 (06:54→19:59)
[2017-11-15] MEDS: albuterol 2.5 MG/3 ML nebule NEB SCH ×5 (06:54→19:59)
[2017-11-15] MEDS: K and/or MAG REPLACEMENT MC SCH (08:00)
[2017-11-15] MEDS: CefTRIAXone/D5W-Rocephin 1gm 50 ML IV SCH (08:43)
[2017-11-15] MEDS: venlafaxine XR 75mg capsule (Q24H) PO SCH (08:43)
[2017-11-15] MEDS: azithromycin 250mg tablet PO SCH (08:43)
[2017-11-15] MEDS: sodium chloride 1gm tablet PO SCH ×4 (08:43→20:11)
[2017-11-15] MEDS: lactobacillus rhamnosus 10,000 MMU CELLS/CAPSULE PO SCH ×2 (08:43→20:11)
[2017-11-15] MEDS: pantoprazole 40mg Tablet.DR PO SCH (08:43)
[2017-11-15] MEDS: heparin, porcine 5000 units/ml vial SQ SCH ×2 (08:44→20:13)
[2017-11-15 11:00] VITALS: BP 129/84
[2017-11-15] MEDS: normal saline 1000ml 1,000 ML IV SCH (14:45)
[2017-11-15 15:00] VITALS: BP 142/89
[2017-11-15 18:00] VITALS: BP 139/96
[2017-11-15 22:00] VITALS: BP 134/89
[2017-11-16 02:00] VITALS: BP 118/88
[2017-11-16] MEDS: ampicillin inj 2 GM in normal saline 100ml IV soln 100 ML IV SCH ×2 (02:30→08:10)
[2017-11-16 06:00] VITALS: BP 138/88
[2017-11-16] MEDS: budesonide 0.5mg/2ml UD nebule IH SCH ×2 (06:44→20:45)
[2017-11-16] MEDS: albuterol 2.5 MG/3 ML nebule NEB SCH ×3 (06:45→15:06)
[2017-11-16] MEDS: K and/or MAG REPLACEMENT MC SCH (08:00)
[2017-11-16] MEDS: CefTRIAXone/D5W-Rocephin 1gm 50 ML IV SCH (08:10)
[2017-11-16] MEDS: normal saline 1000ml 1,000 ML IV SCH ×2 (08:10→19:06)
[2017-11-16] MEDS: venlafaxine XR 75mg capsule (Q24H) PO SCH (08:10)
[2017-11-16] MEDS: sodium chloride 1gm tablet PO SCH ×4 (08:10→20:18)
[2017-11-16] MEDS: pantoprazole 40mg Tablet.DR PO SCH (08:10)
[2017-11-16] MEDS: heparin, porcine 5000 units/ml vial SQ SCH ×2 (08:11→20:18)
[2017-11-16] MEDS: azithromycin 250mg tablet PO SCH (08:11)
[2017-11-16] MEDS: lactobacillus rhamnosus 10,000 MMU CELLS/CAPSULE PO SCH ×2 (08:11→20:18)
[2017-11-16 09:26] LABS: BASOPHILS % (AUTO) 0.7 % (0-1); EOSINOPHILS # (AUTO) 0.1 X10'3 (0-0.9); EOSINOPHILS % (AUTO) 1.4 % (0-6); HEMATOCRIT 34.1 % (35.0-45.0); HEMOGLOBIN 11.1 g/dl (12.0-16.0); LYMPHOCYTES # (AUTO) 1.1 X10'3 (1.1-4.8); LYMPHOCYTES % (AUTO) 20.7 % (21-51); MEAN CORPUSCULAR HEMOGLOBIN 29.5 PG (27.0-31.0); MEAN CORPUSCULAR HGB CONC 32.4 % (33.0-36.5); MEAN CORPUSCULAR VOLUME 91.1 FL (78-98); MEAN PLATELET VOLUME 7.9 FL (7.4-10.4); MONOCYTES # (AUTO) 0.6 X10'3 (0-0.9); MONOCYTES % (AUTO) 10.8 % (2-12); NEUTROPHILS # (AUTO) 3.4 X10'3 (1.8-7.7); NEUTROPHILS % (AUTO) 66.4 % (42-75); PLATELET COUNT 226 X10'3 (140-440); RED BLOOD COUNT 3.74 X10'6 (4.20-5.60); RED CELL DISTRIBUTION WIDTH 19.6 % (11.5-14.5); WHITE BLOOD COUNT 5.1 X10'3 (4.5-11.0)
[2017-11-16 09:58] LABS: ALBUMIN 2.9 G/DL (3.4-5.0); ANION GAP 13 (8-16); BLOOD UREA NITROGEN 23 MG/DL (7-18); BUN/CREATININE RATIO 7.7 (6.6-38.0); CALCIUM 8.8 MG/DL (8.5-10.1); CHLORIDE 93 MMOL/L (99-107); GLUCOSE 103 MG/DL (70-104); POTASSIUM 4.8 MMOL/L (3.5-5.1); SODIUM 126 MMOL/L (135-145); eGFR 15 ML/MIN
[2017-11-16 11:00] VITALS: BP 135/86
[2017-11-16 15:00] VITALS: BP 148/82
[2017-11-16 19:00] VITALS: BP 130/87
[2017-11-16 23:00] VITALS: BP 122/73
[2017-11-17 03:00] VITALS: BP 139/82
[2017-11-17 06:00] VITALS: BP 111/71
[2017-11-17 06:47] LABS: ALBUMIN 2.8 G/DL (3.4-5.0); ANION GAP 16 (8-16); BLOOD UREA NITROGEN 27 MG/DL (7-18); BUN/CREATININE RATIO 8.3 (6.6-38.0); CALCIUM 8.7 MG/DL (8.5-10.1); CHLORIDE 94 MMOL/L (99-107); CREATININE 3.24 MG/DL (0.40-0.90); GLUCOSE 79 MG/DL (70-104); SODIUM 126 MMOL/L (135-145); TOTAL CARBON DIOXIDE 15.9 MMOL/L (24-32); eGFR 14 ML/MIN
[2017-11-17 06:51] LABS: POTASSIUM 5.6 MMOL/L (3.5-5.1)
[2017-11-17] MEDS: budesonide 0.5mg/2ml UD nebule IH SCH ×2 (07:28→20:19)
[2017-11-17] MEDS: albuterol 2.5 MG/3 ML nebule NEB SCH ×4 (07:28→20:19)
[2017-11-17] MEDS: K and/or MAG REPLACEMENT MC SCH (08:00)
[2017-11-17] MEDS: heparin, porcine 5000 units/ml vial SQ SCH ×2 (08:30→20:30)
[2017-11-17] MEDS: pantoprazole 40mg Tablet.DR PO SCH (08:31)
[2017-11-17] MEDS: lactobacillus rhamnosus 10,000 MMU CELLS/CAPSULE PO SCH ×2 (08:31→20:29)
[2017-11-17] MEDS: CefTRIAXone/D5W-Rocephin 1gm 50 ML IV SCH (08:31)
[2017-11-17] MEDS: azithromycin 250mg tablet PO SCH (08:31)
[2017-11-17] MEDS: sodium chloride 1gm tablet PO SCH (08:31)
[2017-11-17] MEDS ORDERED: sodium polystyrene sulfonate 15gm/60ml oral suspension PO ONE (10:15)
[2017-11-17 11:00] VITALS: BP 122/93
[2017-11-17] MEDS: sodium bicarbonate (8.4%) inj. 100 MEQ in sodium chloride 0.45% 1,000 ML IV SCH (13:47)
[2017-11-17 15:00] VITALS: BP 125/86
[2017-11-17 19:00] VITALS: BP 139/89
[2017-11-17 23:00] VITALS: BP 129/84
[2017-11-18] MEDS: sodium bicarbonate (8.4%) inj. 100 MEQ in sodium chloride 0.45% 1,000 ML IV SCH ×2 (00:11→09:35)
[2017-11-18 03:00] VITALS: BP 121/90
[2017-11-18 03:54] LABS: BASOPHILS % (AUTO) 0.4 % (0-1); EOSINOPHILS # (AUTO) 0.1 X10'3 (0-0.9); EOSINOPHILS % (AUTO) 1.1 % (0-6); HEMATOCRIT 34.5 % (35.0-45.0); HEMOGLOBIN 11.2 g/dl (12.0-16.0); LYMPHOCYTES % (AUTO) 19.9 % (21-51); MEAN CORPUSCULAR HEMOGLOBIN 29.8 PG (27.0-31.0); MEAN CORPUSCULAR HGB CONC 32.4 % (33.0-36.5); MEAN CORPUSCULAR VOLUME 91.9 FL (78-98); MEAN PLATELET VOLUME 8.4 FL (7.4-10.4); MONOCYTES # (AUTO) 0.6 X10'3 (0-0.9); MONOCYTES % (AUTO) 11.9 % (2-12); NEUTROPHILS # (AUTO) 3.3 X10'3 (1.8-7.7); NEUTROPHILS % (AUTO) 66.7 % (42-75); PLATELET COUNT 214 X10'3 (140-440); RED BLOOD COUNT 3.76 X10'6 (4.20-5.60); RED CELL DISTRIBUTION WIDTH 19.5 % (11.5-14.5); WHITE BLOOD COUNT 4.9 X10'3 (4.5-11.0)
[2017-11-18 05:52] LABS: ANION GAP 14 (8-16); BLOOD UREA NITROGEN 30 MG/DL (7-18); BUN/CREATININE RATIO 8.4 (6.6-38.0); CALCIUM 9.2 MG/DL (8.5-10.1); CHLORIDE 92 MMOL/L (99-107); CREATININE 3.57 MG/DL (0.40-0.90); GLUCOSE 85 MG/DL (70-104); SODIUM 125 MMOL/L (135-145); eGFR 12 ML/MIN
[2017-11-18 06:00] VITALS: BP 139/85
[2017-11-18] MEDS: albuterol 2.5 MG/3 ML nebule NEB SCH ×4 (07:40→19:15)
[2017-11-18] MEDS: budesonide 0.5mg/2ml UD nebule IH SCH ×2 (07:40→19:16)
[2017-11-18] MEDS: K and/or MAG REPLACEMENT MC SCH (08:00)
[2017-11-18] MEDS: lactobacillus rhamnosus 10,000 MMU CELLS/CAPSULE PO SCH ×2 (08:08→20:30)
[2017-11-18] MEDS: azithromycin 250mg tablet PO SCH (08:08)
[2017-11-18] MEDS: pantoprazole 40mg Tablet.DR PO SCH (08:08)
[2017-11-18] MEDS: heparin, porcine 5000 units/ml vial SQ SCH ×2 (08:09→20:31)
[2017-11-18 11:00] VITALS: BP 127/85
[2017-11-18] MEDS: ondansetron/PF 4mg/2ml inj IV PRN ×2 (13:32→22:36)
[2017-11-18] MEDS: clopidogrel 75mg tablet PO SCH (14:53)
[2017-11-18 15:00] VITALS: BP 132/80
[2017-11-18 19:00] VITALS: BP 131/87
[2017-11-18 23:00] VITALS: BP 122/79
[2017-11-19 03:00] VITALS: BP 143/68
[2017-11-19 05:37] LABS: ALBUMIN 2.9 G/DL (3.4-5.0); ANION GAP 16 (8-16); BLOOD UREA NITROGEN 33 MG/DL (7-18); BUN/CREATININE RATIO 8.8 (6.6-38.0); CALCIUM 9.1 MG/DL (8.5-10.1); CHLORIDE 92 MMOL/L (99-107); CREATININE 3.76 MG/DL (0.40-0.90); GLUCOSE 88 MG/DL (70-104); POTASSIUM 4.6 MMOL/L (3.5-5.1); SODIUM 127 MMOL/L (135-145); TOTAL CARBON DIOXIDE 18.8 MMOL/L (24-32); eGFR 12 ML/MIN
[2017-11-19 06:00] VITALS: BP 139/87
[2017-11-19] MEDS: budesonide 0.5mg/2ml UD nebule IH SCH ×2 (07:13→19:53)
[2017-11-19] MEDS: albuterol 2.5 MG/3 ML nebule NEB SCH ×4 (07:13→19:53)
[2017-11-19] MEDS: K and/or MAG REPLACEMENT MC SCH (08:00)
[2017-11-19] MEDS: atorvastatin 20mg tablet PO SCH (08:20)
[2017-11-19] MEDS: lactobacillus rhamnosus 10,000 MMU CELLS/CAPSULE PO SCH ×2 (08:20→20:02)
[2017-11-19] MEDS: sodium bicarbonate (8.4%) inj. 100 MEQ in sodium chloride 0.45% 1,000 ML IV SCH ×3 (08:20→19:20)
[2017-11-19] MEDS: clopidogrel 75mg tablet PO SCH (08:21)
[2017-11-19] MEDS: azithromycin 250mg tablet PO SCH (08:22)
[2017-11-19] MEDS: pantoprazole 40mg Tablet.DR PO SCH (08:22)
[2017-11-19] MEDS: heparin, porcine 5000 units/ml vial SQ SCH ×2 (08:23→20:02)
[2017-11-19 11:00] VITALS: BP 129/87
[2017-11-19 15:00] VITALS: BP 125/89
[2017-11-19 19:00] VITALS: BP 142/96
[2017-11-19 23:00] VITALS: BP 130/86
[2017-11-20] VITALS (7 sets, daily range): BP systolic 122–185; BP diastolic 84–99
[2017-11-20 02:42] LABS: CLARITY,URINE SLIGHTLY CLOUDY (Clear); COLOR,URINE YELLOW (Yellow); GLUCOSE, URINE NEGATIVE (Neg); KETONES,URINE TRACE mg/dl (Neg); LEUKOCYTE ESTERASE ,URINE NEGATIVE (Neg); NITRITES, URINE NEGATIVE (Neg); OCCULT BLOOD,URINE SMALL (Neg); PROTEIN,URINE 30 mg/dl (Neg); UROBILINOGEN,URINE 0.2 E.U/dL (0.2-1.0)
[2017-11-20 02:43] LABS: UA COLLECTION TYPE STRAIGHT CATH
[2017-11-20 02:51] LABS: TOTAL PROTEIN,URINE RANDOM 74.8 MG/DL
[2017-11-20 03:04] LABS: MUCUS STRANDS MANY /LPF (Neg); SQUAMOUS EPITHELIAL CELL,UR MODERATE /LPF (FEW)
[2017-11-20 03:06] LABS: AMORPHOUS URATES 2+
[2017-11-20 03:07] LABS: BACTERIA,URINE 2+ /HPF (Neg); RBC,URINE 0-2 /HPF (0-2); WBC,URINE 0-4 /HPF (0-4)
[2017-11-20 05:15] LABS: ALBUMIN 2.8 G/DL (3.4-5.0); ANION GAP 10 (8-16); BLOOD UREA NITROGEN 36 MG/DL (7-18); BUN/CREATININE RATIO 10.7 (6.6-38.0); CALCIUM 8.6 MG/DL (8.5-10.1); CHLORIDE 94 MMOL/L (99-107); CREATININE 3.37 MG/DL (0.40-0.90); GLUCOSE 99 MG/DL (70-104); POTASSIUM 4.3 MMOL/L (3.5-5.1); SODIUM 127 MMOL/L (135-145); eGFR 13 ML/MIN
[2017-11-20] MEDS: albuterol 2.5 MG/3 ML nebule NEB SCH ×4 (06:38→19:40)
[2017-11-20] MEDS: budesonide 0.5mg/2ml UD nebule IH SCH ×2 (06:39→19:39)
[2017-11-20] MEDS: K and/or MAG REPLACEMENT MC SCH (08:00)
[2017-11-20] MEDS: lactobacillus rhamnosus 10,000 MMU CELLS/CAPSULE PO SCH ×2 (08:42→21:01)
[2017-11-20] MEDS: clopidogrel 75mg tablet PO SCH (08:44)
[2017-11-20] MEDS: heparin, porcine 5000 units/ml vial SQ SCH ×2 (08:44→21:01)
[2017-11-20] MEDS: azithromycin 250mg tablet PO SCH (08:44)
[2017-11-20] MEDS: pantoprazole 40mg Tablet.DR PO SCH (08:44)
[2017-11-20] MEDS: atorvastatin 20mg tablet PO SCH (08:44)
[2017-11-20] MEDS: sodium bicarbonate (8.4%) inj. 100 MEQ in sodium chloride 0.45% 1,000 ML IV SCH ×2 (12:29→17:20)
[2017-11-20] MEDS ORDERED: CITRIC ACID PO ONE (13:00)
[2017-11-20] MEDS ORDERED: SODIUM CITRATE PO ONE (13:00)
[2017-11-21 03:00] VITALS: BP 138/87
[2017-11-21] MEDS: sodium bicarbonate (8.4%) inj. 100 MEQ in sodium chloride 0.45% 1,000 ML IV SCH ×2 (04:20→15:43)
[2017-11-21 05:30] VITALS: BP 143/93
[2017-11-21] MEDS: budesonide 0.5mg/2ml UD nebule IH SCH ×2 (07:08→19:34)
[2017-11-21] MEDS: albuterol 2.5 MG/3 ML nebule NEB SCH ×4 (07:08→19:34)
[2017-11-21] MEDS: K and/or MAG REPLACEMENT MC SCH (08:00)
[2017-11-21 08:07] LABS: ALBUMIN 2.8 G/DL (3.4-5.0); ANION GAP 13 (8-16); BLOOD UREA NITROGEN 31 MG/DL (7-18); BUN/CREATININE RATIO 11.1 (6.6-38.0); CALCIUM 8.7 MG/DL (8.5-10.1); CHLORIDE 93 MMOL/L (99-107); GLUCOSE 107 MG/DL (70-104); SODIUM 131 MMOL/L (135-145); TOTAL CARBON DIOXIDE 25.3 MMOL/L (24-32); eGFR 17 ML/MIN
[2017-11-21] MEDS: heparin, porcine 5000 units/ml vial SQ SCH ×2 (08:58→20:53)
[2017-11-21] MEDS: pantoprazole 40mg Tablet.DR PO SCH (08:58)
[2017-11-21] MEDS: lactobacillus rhamnosus 10,000 MMU CELLS/CAPSULE PO SCH ×2 (08:58→20:53)
[2017-11-21] MEDS: atorvastatin 20mg tablet PO SCH (08:58)
[2017-11-21] MEDS: clopidogrel 75mg tablet PO SCH (08:58)
[2017-11-21 11:00] VITALS: BP 127/86
[2017-11-21 15:00] VITALS: BP 139/91
[2017-11-21 16:35] LABS: UREA NITROGEN 24HR,URINE 2.3 GM/24HR (7-20)
[2017-11-21 19:00] VITALS: BP 136/91
[2017-11-21 23:00] VITALS: BP 136/84
[2017-11-22] MEDS: sodium bicarbonate (8.4%) inj. 100 MEQ in sodium chloride 0.45% 1,000 ML IV SCH (02:20)
[2017-11-22 03:00] VITALS: BP 133/85
[2017-11-22 05:56] LABS: BASOPHILS % (AUTO) 0.2 % (0-1); EOSINOPHILS % (AUTO) 0.9 % (0-6); HEMATOCRIT 35.1 % (35.0-45.0); HEMOGLOBIN 11.5 g/dl (12.0-16.0); LYMPHOCYTES % (AUTO) 21.9 % (21-51); MEAN CORPUSCULAR HEMOGLOBIN 29.5 PG (27.0-31.0); MEAN CORPUSCULAR HGB CONC 32.7 % (33.0-36.5); MEAN CORPUSCULAR VOLUME 90.1 FL (78-98); MEAN PLATELET VOLUME 8.1 FL (7.4-10.4); MONOCYTES # (AUTO) 0.5 X10'3 (0-0.9); MONOCYTES % (AUTO) 10.7 % (2-12); NEUTROPHILS # (AUTO) 3.1 X10'3 (1.8-7.7); NEUTROPHILS % (AUTO) 66.3 % (42-75); PLATELET COUNT 143 X10'3 (140-440); RED CELL DISTRIBUTION WIDTH 18.9 % (11.5-14.5); WHITE BLOOD COUNT 4.7 X10'3 (4.5-11.0)
[2017-11-22 06:00] LABS: ANION GAP 11 (8-16); BLOOD UREA NITROGEN 31 MG/DL (7-18); BUN/CREATININE RATIO 13.2 (6.6-38.0); CHLORIDE 93 MMOL/L (99-107); CREATININE 2.34 MG/DL (0.40-0.90); GLUCOSE 106 MG/DL (70-104); SODIUM 131 MMOL/L (135-145); eGFR 20 ML/MIN
[2017-11-22 06:41] LABS: ANISOCYTOSIS 2+; PLATELET ESTIMATE DECREASED
[2017-11-22 06:53] VITALS: BP 130/95
[2017-11-22] MEDS: atorvastatin 20mg tablet PO SCH (07:45)
[2017-11-22] MEDS: lactobacillus rhamnosus 10,000 MMU CELLS/CAPSULE PO SCH (07:45)
[2017-11-22] MEDS: clopidogrel 75mg tablet PO SCH (07:45)
[2017-11-22] MEDS: pantoprazole 40mg Tablet.DR PO SCH (07:45)
[2017-11-22] MEDS: heparin, porcine 5000 units/ml vial SQ SCH (07:46)
[2017-11-22] MEDS: LACTOSE-FREE FOOD 237ML (BOOST) PO SCH ×3 (07:54→13:42)
[2017-11-22] MEDS: K and/or MAG REPLACEMENT MC SCH (08:00)
[2017-11-22] MEDS: albuterol 2.5 MG/3 ML nebule NEB SCH ×2 (09:26→11:01)
[2017-11-22 11:00] VITALS: BP 142/89
[2017-11-22] MEDS ORDERED: LACT1CAP26 PO (13:53)
[2017-11-22] MEDS ORDERED: CLOP75TA35 PO (13:53)
[2017-11-22] MEDS ORDERED: BUDE0.5A3 IH (13:53)
[2017-11-22] MEDS ORDERED: HYDR-569 PO (13:53)
[2017-11-22] MEDS ORDERED: ATOR20TA66 PO (13:53)
[2017-11-22] MEDS ORDERED: ALBU2.5V7 NEB (13:53)
[2017-11-22 15:00] VITALS: BP 139/82
[2017-11-24 14:33] LABS: PROTEIN,TOTAL,URINE 73.5 mg/dL (Not Estab.)
== END 2017-11-22 15:40 | DRG 291 ==
LOC: ER 06:42 → ED HOLD 08:56 → EEVIPCON 08:56 → PCU 3S 12:00
PROVIDERS: ADMIT Internal Medicine; ATTEND Family Medicine
DX: I11.0 Hypertensive heart disease with heart failure (principal); I63.8 Other cerebral infarction; J18.9 Pneumonia, unspecified organism; E87.1 Hypo-osmolality and hyponatremia; N39.0 Urinary tract infection, site not specified; N17.9 Acute kidney failure, unspecified; K57.92 Diverticulitis of intestine, part unspecified, without perforation or abscess without bleeding; I50.23 Acute on chronic systolic (congestive) heart failure; F32.9 Major depressive disorder, single episode, unspecified; K21.9 Gastro-esophageal reflux disease without esophagitis; J45.909 Unspecified asthma, uncomplicated; I25.10 Atherosclerotic heart disease of native coronary artery without angina pectoris; E87.6 Hypokalemia; R32 Unspecified urinary incontinence; Z66 Do not resuscitate; B96.20 Unspecified Escherichia coli [E. coli] as the cause of diseases classified elsewhere; Z79.02 Long term (current) use of antithrombotics/antiplatelets; Z88.6 Allergy status to analgesic agent; Z88.8 Allergy status to other drugs, medicaments and biological substances; Z91.012 Allergy to eggs; Z88.5 Allergy status to narcotic agent
CPT/HCPCS: 36415; 70450; 71045; 76700; 78707; 80048; 80053; 80305; 80320; 81001; 82140; 82533; 82570; 82948; 83605; 83735; 83880; 83930; 83935; 84145; 84156; 84166; 84295; 84300; 84484; 84540; 84560; 85025; 85610; 85730; 87040; 87070; 87077; 87088; 87186; 87207; 93005; 93308; 94640; 94760; 96365; 97110; 97116; 97162; 97530; 99285; A4315; A4333; A4353; A6446; A9562; J0290; J0456; J0696; J1644; J1940; J2405; J7030; J7626

== ENCOUNTER 2017-12-07 09:52 | Inpatient (IN) | payer MEDICARE, MEDICAID ==
[~2017-12-07] VITALS: Ht 157.5 cm; Wt 74.0 kg
[~2017-12-07 09:52] MED LIST changes: -ALBU18HF2; +ALBU2.5V7 NEB; +ATOR20TA66 PO; +BUDE0.5A3 IH; +CLOP75TA35 PO; -CYAN100097 PO; -HYDR-3965 PO; +HYDR-569 PO; +LACT1CAP26 PO; -NITR0.4T48; +ONDA4TAB12 PO; -POTA20TA10 PO
[2017-12-07] MEDS ORDERED: furosemide 40mg/4ml inj IV ONE (10:00)
[2017-12-07] MEDS ORDERED: methylPREDNISolone sod succ 125mg/2ml vial IV ONE (10:00)
[2017-12-07] MEDS ORDERED: ipratropium/albuterol 3ml nebule NEB ONE (10:00)
[2017-12-07 10:26] LABS: ABG BASE EXCESS 6.3 mmol/L (-2.0-3.0); ABG HCO3 33.2 mmol/L (22.0-26.0); ABG OXYGEN SATURATION 98.4 % (95-98); ABG PH (T) 7.376 (7.350-7.450); ABG PO2 (T) 120.3 mmHg (83-108); FCOHb 1.8 % (0.5-1.5); FLOW 3 L/min; FMetHb 0.2 % (0.3-1.12); FO2Hb 96.4 % (94-100); TOTAL HEMOGLOBIN 13.4 G/dl (12.0-16.0)
[2017-12-07] MEDS ORDERED: levoFLOXACIN-Levaquin 750MG/D5 150 ML IV ONE (10:35)
[2017-12-07 11:04] LABS: BASOPHILS # (AUTO) 0.1 X10'3 (0-0.2); BASOPHILS % (AUTO) 2.1 % (0-1); EOSINOPHILS # (AUTO) 0.1 X10'3 (0-0.9); EOSINOPHILS % (AUTO) 1.5 % (0-6); HEMATOCRIT 41.4 % (35.0-45.0); HEMOGLOBIN 13.4 g/dl (12.0-16.0); LYMPHOCYTES # (AUTO) 0.5 X10'3 (1.1-4.8); MEAN CORPUSCULAR HEMOGLOBIN 28.5 PG (27.0-31.0); MEAN CORPUSCULAR HGB CONC 32.5 % (33.0-36.5); MEAN CORPUSCULAR VOLUME 87.9 FL (78-98); MEAN PLATELET VOLUME 10.4 FL (7.4-10.4); MONOCYTES # (AUTO) 0.3 X10'3 (0-0.9); MONOCYTES % (AUTO) 4.1 % (2-12); NEUTROPHILS # (AUTO) 5.7 X10'3 (1.8-7.7); NEUTROPHILS % (AUTO) 84.3 % (42-75); PLATELET COUNT 89 X10'3 (140-440); RED BLOOD COUNT 4.71 X10'6 (4.20-5.60); RED CELL DISTRIBUTION WIDTH 19.4 % (11.5-14.5); WHITE BLOOD COUNT 6.8 X10'3 (4.5-11.0)
[2017-12-07 11:11] LABS: INR 1.1 INR; PROTHROMBIN TIME 11.6 SECONDS (9.0-12.0)
[2017-12-07 11:19] LABS: ALANINE AMINOTRANSFERASE 186 U/L (12-78); ALBUMIN 2.1 G/DL (3.4-5.0); ALBUMIN/GLOBULIN RATIO 0.5 (1.1-1.5); ALKALINE PHOSPHATASE 138 IU/L (46-116); ANION GAP 2 (8-16); ASPARTATE AMINO TRANSFERASE 189 U/L (10-37); BILIRUBIN,TOTAL 1.4 MG/DL (0.1-1.0); BLOOD UREA NITROGEN 47 MG/DL (7-18); BUN/CREATININE RATIO 16.7 (6.6-38.0); CALCIUM 8.6 MG/DL (8.5-10.1); CHLORIDE 97 MMOL/L (99-107); CREATININE 2.81 MG/DL (0.40-0.90); GLUCOSE 147 MG/DL (70-104); SODIUM 133 MMOL/L (135-145); TOTAL CARBON DIOXIDE 34.3 MMOL/L (24-32); TOTAL PROTEIN 6.1 G/DL (6.4-8.2); eGFR 16 ML/MIN
[2017-12-07 11:20] LABS: PLATELET ESTIMATE DECREASED
[2017-12-07 11:21] LABS: POTASSIUM 5.3 MMOL/L (3.5-5.1)
[2017-12-07 11:22] LABS: LARGE PLATELETS FEW
[2017-12-07] MEDS ORDERED: magnesium hydroxide 30ml (MOM) UD suspension PO PRN (11:40)
[2017-12-07] MEDS ORDERED: morphine 4 MG/ML inj SYRINge IV PRN (11:40)
[2017-12-07] MEDS ORDERED: mag hydrox/Alum hydrox/simeth 30ml oral suspension PO PRN (11:40)
[2017-12-07] MEDS ORDERED: ondansetron/PF 4mg/2ml inj IV PRN (11:40)
[2017-12-07 12:15] VITALS: BP 114/78
[2017-12-07] MEDS: furosemide 20 MG/2 ML vial IV SCH ×2 (14:14→20:35)
[2017-12-07] MEDS: HYDROcodone/acetaminophen 5mg/325mg tablet PO PRN (14:15)
[2017-12-07 15:30] VITALS: BP 114/74
[2017-12-07 16:51] LABS: CLARITY,URINE CLOUDY (Clear); COLOR,URINE YELLOW (Yellow); GLUCOSE, URINE NEGATIVE (Neg); KETONES,URINE NEGATIVE (Neg); LEUKOCYTE ESTERASE ,URINE NEGATIVE (Neg); NITRITES, URINE NEGATIVE (Neg); OCCULT BLOOD,URINE LARGE (Neg); PH,URINE 5.5 (4.8-8.0); PROTEIN,URINE 30 mg/dl (Neg); UROBILINOGEN,URINE 0.2 E.U/dL (0.2-1.0)
[2017-12-07 17:05] LABS: UA COLLECTION TYPE STRAIGHT CATH
[2017-12-07 17:07] LABS: BACTERIA,URINE 3+ /HPF (Neg); SQUAMOUS EPITHELIAL CELL,UR MODERATE /LPF (FEW); YEAST MANY /HPF (NEGATIVE)
[2017-12-07 17:08] LABS: HYALINE CASTS 0-3 /LPF (NEGATIVE); RBC,URINE 0-2 /HPF (0-2)
[2017-12-07 18:00] VITALS: BP 119/71
[2017-12-07 22:00] VITALS: BP 118/77
[2017-12-08 02:00] VITALS: BP 119/78
[2017-12-08 05:22] LABS: BASOPHILS % (AUTO) 0 % (0-1); EOSINOPHILS # (AUTO) 0.2 X10'3 (0-0.9); HEMATOCRIT 39.2 % (35.0-45.0); HEMOGLOBIN 12.6 g/dl (12.0-16.0); LYMPHOCYTES # (AUTO) 0.5 X10'3 (1.1-4.8); MEAN CORPUSCULAR HEMOGLOBIN 28.4 PG (27.0-31.0); MEAN CORPUSCULAR HGB CONC 32.1 % (33.0-36.5); MEAN CORPUSCULAR VOLUME 88.6 FL (78-98); MEAN PLATELET VOLUME 10.1 FL (7.4-10.4); MONOCYTES # (AUTO) 0.1 X10'3 (0-0.9); MONOCYTES % (AUTO) 0.8 % (2-12); NEUTROPHILS # (AUTO) 9.3 X10'3 (1.8-7.7); NEUTROPHILS % (AUTO) 92.2 % (42-75); PLATELET COUNT 77 X10'3 (140-440); RED BLOOD COUNT 4.43 X10'6 (4.20-5.60); RED CELL DISTRIBUTION WIDTH 19.3 % (11.5-14.5); WHITE BLOOD COUNT 10.1 X10'3 (4.5-11.0)
[2017-12-08 05:47] LABS: ALANINE AMINOTRANSFERASE 168 U/L (12-78); ALBUMIN 1.9 G/DL (3.4-5.0); ALBUMIN/GLOBULIN RATIO 0.5 (1.1-1.5); ALKALINE PHOSPHATASE 113 IU/L (46-116); ANION GAP 3 (8-16); ASPARTATE AMINO TRANSFERASE 158 U/L (10-37); BLOOD UREA NITROGEN 46 MG/DL (7-18); BUN/CREATININE RATIO 18.5 (6.6-38.0); CALCIUM 8.5 MG/DL (8.5-10.1); CHLORIDE 94 MMOL/L (99-107); CREATININE 2.49 MG/DL (0.40-0.90); GLUCOSE 137 MG/DL (70-104); SODIUM 131 MMOL/L (135-145); TOTAL CARBON DIOXIDE 34.5 MMOL/L (24-32); TOTAL PROTEIN 5.5 G/DL (6.4-8.2); eGFR 19 ML/MIN
[2017-12-08 05:49] LABS: POTASSIUM 5.7 MMOL/L (3.5-5.1)
[2017-12-08 06:00] VITALS: BP 113/71
[2017-12-08] MEDS: furosemide 20 MG/2 ML vial IV SCH ×2 (08:28→21:48)
[2017-12-08] MEDS: HYDROcodone/acetaminophen 10/325mg tab PO PRN (08:28)
[2017-12-08] MEDS: enoxaparin 40mg/0.4ml syringe SUBCUT SCH (08:29)
[2017-12-08] MEDS ORDERED: calcium chloride 100 MG/1 ML inj IV ONE (10:15)
[2017-12-08] MEDS ORDERED: dextrose 50%-water 50ml dispensing syringe IV ONE (10:15)
[2017-12-08] MEDS ORDERED: sodium bicarbonate (8.4%) 1 mEq/ml syringe IV ONE (10:15)
[2017-12-08] MEDS ORDERED: insulin regular, human 10 units/0.1 ml syringe IV ONE (10:15)
[2017-12-08] MEDS ORDERED: sodium polystyrene sulfonate 15gm/60ml oral suspension PO ONE (10:15)
[2017-12-08] MEDS ORDERED: albuterol 2.5 MG/3 ML nebule NEB ONE (10:15)
[2017-12-08 11:00] VITALS: BP 113/69
[2017-12-08 11:52] LABS: MAGNESIUM 1.6 MG/DL (1.5-2.4); PHOSPHORUS 4.3 MG/DL (2.3-4.5)
[2017-12-08] MEDS ORDERED: calcium chloride inj. 1,000 MG in normal saline 100ml IV soln 90 ML IV ONE (13:05)
[2017-12-08 15:00] VITALS: BP 108/62
[2017-12-08 18:00] VITALS: BP 121/85
[2017-12-08] MEDS: LACTOSE-FREE FOOD 237ML (BOOST) PO SCH (18:00)
[2017-12-08] MEDS: furosemide 40mg/4ml inj IV SCH (20:00)
[2017-12-08 22:00] VITALS: BP 112/70
[2017-12-09 02:00] VITALS: BP 110/68
[2017-12-09 05:36] LABS: BASOPHILS % (AUTO) 0 % (0-1); EOSINOPHILS # (AUTO) 0.2 X10'3 (0-0.9); EOSINOPHILS % (AUTO) 1.2 % (0-6); HEMATOCRIT 38.2 % (35.0-45.0); HEMOGLOBIN 12.2 g/dl (12.0-16.0); LYMPHOCYTES # (AUTO) 0.5 X10'3 (1.1-4.8); LYMPHOCYTES % (AUTO) 3.4 % (21-51); MEAN CORPUSCULAR HEMOGLOBIN 28.4 PG (27.0-31.0); MEAN CORPUSCULAR VOLUME 88.8 FL (78-98); MEAN PLATELET VOLUME 9.9 FL (7.4-10.4); MONOCYTES # (AUTO) 0.2 X10'3 (0-0.9); MONOCYTES % (AUTO) 1.5 % (2-12); NEUTROPHILS # (AUTO) 13.4 X10'3 (1.8-7.7); NEUTROPHILS % (AUTO) 93.9 % (42-75); PLATELET COUNT 88 X10'3 (140-440); RED BLOOD COUNT 4.31 X10'6 (4.20-5.60); RED CELL DISTRIBUTION WIDTH 19.3 % (11.5-14.5); WHITE BLOOD COUNT 14.3 X10'3 (4.5-11.0)
[2017-12-09 06:00] VITALS: BP 109/64
[2017-12-09 06:19] LABS: ALANINE AMINOTRANSFERASE 167 U/L (12-78); ALBUMIN/GLOBULIN RATIO 0.5 (1.1-1.5); ALKALINE PHOSPHATASE 122 IU/L (46-116); ANION GAP 3 (8-16); ASPARTATE AMINO TRANSFERASE 142 U/L (10-37); BILIRUBIN,TOTAL 0.9 MG/DL (0.1-1.0); BLOOD UREA NITROGEN 51 MG/DL (7-18); BUN/CREATININE RATIO 22.6 (6.6-38.0); CALCIUM 8.5 MG/DL (8.5-10.1); CHLORIDE 94 MMOL/L (99-107); CREATININE 2.26 MG/DL (0.40-0.90); GLUCOSE 109 MG/DL (70-104); POTASSIUM 4.1 MMOL/L (3.5-5.1); SODIUM 131 MMOL/L (135-145); TOTAL CARBON DIOXIDE 33.8 MMOL/L (24-32); TOTAL PROTEIN 5.7 G/DL (6.4-8.2); eGFR 21 ML/MIN
[2017-12-09 07:11] LABS: ANISOCYTOSIS 2+; LARGE PLATELETS FEW; PLATELET ESTIMATE DECREASED
[2017-12-09 07:12] LABS: POIKILOCYTOSIS FEW; POLYCHROMASIA 1+; TARGET CELLS FEW
[2017-12-09] MEDS: furosemide 20 MG/2 ML vial IV SCH (07:48)
[2017-12-09] MEDS: pantoprazole 40mg Tablet.DR PO SCH (07:48)
[2017-12-09] MEDS: furosemide 40mg/4ml inj IV SCH ×2 (07:48→19:09)
[2017-12-09] MEDS: enoxaparin 40mg/0.4ml syringe SUBCUT SCH (08:00)
[2017-12-09] MEDS: LACTOSE-FREE FOOD 237ML (BOOST) PO SCH ×3 (08:00→18:00)
[2017-12-09 11:00] VITALS: BP 117/69
[2017-12-09] MEDS: levoFLOXACIN-Levaquin 500mg/D5 100 ML IV SCH (11:21)
[2017-12-09] MEDS: acetaminophen 325mg tablet PO PRN (11:37)
[2017-12-09 15:53] VITALS: BP 99/61
[2017-12-09 19:00] VITALS: BP 109/69
[2017-12-09] MEDS: lactobacillus rhamnosus 10,000 MMU CELLS/CAPSULE PO SCH (19:05)
[2017-12-09] MEDS: HYDROcodone/acetaminophen 5mg/325mg tablet PO PRN (19:06)
[2017-12-09 23:00] VITALS: BP 115/70
[2017-12-10 03:02] VITALS: BP 114/68
[2017-12-10 05:19] LABS: BASOPHILS % (AUTO) 0 % (0-1); EOSINOPHILS # (AUTO) 0.1 X10'3 (0-0.9); EOSINOPHILS % (AUTO) 1.2 % (0-6); HEMATOCRIT 39.6 % (35.0-45.0); HEMOGLOBIN 12.9 g/dl (12.0-16.0); LYMPHOCYTES # (AUTO) 0.3 X10'3 (1.1-4.8); LYMPHOCYTES % (AUTO) 3.4 % (21-51); MEAN CORPUSCULAR HEMOGLOBIN 28.8 PG (27.0-31.0); MEAN CORPUSCULAR HGB CONC 32.5 % (33.0-36.5); MEAN CORPUSCULAR VOLUME 88.6 FL (78-98); MEAN PLATELET VOLUME 9.5 FL (7.4-10.4); MONOCYTES # (AUTO) 0.1 X10'3 (0-0.9); MONOCYTES % (AUTO) 1.7 % (2-12); NEUTROPHILS % (AUTO) 93.7 % (42-75); PLATELET COUNT 76 X10'3 (140-440); RED BLOOD COUNT 4.48 X10'6 (4.20-5.60); WHITE BLOOD COUNT 8.6 X10'3 (4.5-11.0)
[2017-12-10 06:19] LABS: ALANINE AMINOTRANSFERASE 166 U/L (12-78); ALBUMIN/GLOBULIN RATIO 0.6 (1.1-1.5); ALKALINE PHOSPHATASE 121 IU/L (46-116); ANION GAP 5 (8-16); ASPARTATE AMINO TRANSFERASE 160 U/L (10-37); BILIRUBIN,TOTAL 0.9 MG/DL (0.1-1.0); BLOOD UREA NITROGEN 46 MG/DL (7-18); BUN/CREATININE RATIO 24.1 (6.6-38.0); CALCIUM 8.2 MG/DL (8.5-10.1); CHLORIDE 91 MMOL/L (99-107); CREATININE 1.91 MG/DL (0.40-0.90); GLUCOSE 100 MG/DL (70-104); SODIUM 132 MMOL/L (135-145); TOTAL CARBON DIOXIDE 35.9 MMOL/L (24-32); TOTAL PROTEIN 5.6 G/DL (6.4-8.2); eGFR 26 ML/MIN
[2017-12-10 06:42] LABS: POTASSIUM 2.8 MMOL/L (3.5-5.1)
[2017-12-10 07:00] VITALS: BP 116/67
[2017-12-10] MEDS ORDERED: magnesium Cl slow-release 64mg tablet PO PRN (07:05)
[2017-12-10] MEDS ORDERED: potassium Cl 40MEQ/NS 500ml 500 ML IV PRN ×2 (07:05)
[2017-12-10] MEDS ORDERED: magnesium 4gm in 100ml NS 100 ML IV PRN (07:05)
[2017-12-10] MEDS ORDERED: potassium Cl 20 mEq SR tablet PO PRN (07:05)
[2017-12-10] MEDS: potassium Cl 20 mEq SR tablet PO PRN ×2 (07:21→14:26)
[2017-12-10] MEDS: lactobacillus rhamnosus 10,000 MMU CELLS/CAPSULE PO SCH ×2 (07:21→19:22)
[2017-12-10] MEDS: furosemide 40mg/4ml inj IV SCH ×2 (07:21→19:22)
[2017-12-10] MEDS: pantoprazole 40mg Tablet.DR PO SCH (07:21)
[2017-12-10] MEDS: LACTOSE-FREE FOOD 237ML (BOOST) PO SCH ×3 (08:00→18:00)
[2017-12-10] MEDS: enoxaparin 40mg/0.4ml syringe SUBCUT SCH (08:00)
[2017-12-10 11:00] VITALS: BP 119/75
[2017-12-10] MEDS: HYDROcodone/acetaminophen 5mg/325mg tablet PO PRN (11:13)
[2017-12-10] MEDS ORDERED: potassium chloride 10mEq CAPSULE.SA PO SCH (14:15)
[2017-12-10 15:00] VITALS: BP 112/70
[2017-12-10 19:00] VITALS: BP 114/66
[2017-12-10] MEDS: carVEDilol 3.125mg tablet PO SCH (19:22)
[2017-12-10 23:00] VITALS: BP 100/65
[2017-12-11] MEDS: potassium Cl 20 mEq SR tablet PO PRN (00:31)
[2017-12-11] MEDS: HYDROcodone/acetaminophen 5mg/325mg tablet PO PRN (02:41)
[2017-12-11 03:00] VITALS: BP 116/70
[2017-12-11 05:35] LABS: BASOPHILS % (AUTO) 0.1 % (0-1); EOSINOPHILS % (AUTO) 0 % (0-6); HEMATOCRIT 37.9 % (35.0-45.0); HEMOGLOBIN 12.1 g/dl (12.0-16.0); LYMPHOCYTES # (AUTO) 0.4 X10'3 (1.1-4.8); LYMPHOCYTES % (AUTO) 5.3 % (21-51); MEAN CORPUSCULAR HGB CONC 31.9 % (33.0-36.5); MEAN CORPUSCULAR VOLUME 87.8 FL (78-98); MEAN PLATELET VOLUME 9.4 FL (7.4-10.4); MONOCYTES % (AUTO) 0.3 % (2-12); NEUTROPHILS # (AUTO) 6.2 X10'3 (1.8-7.7); NEUTROPHILS % (AUTO) 94.3 % (42-75); PLATELET COUNT 73 X10'3 (140-440); RED BLOOD COUNT 4.32 X10'6 (4.20-5.60); RED CELL DISTRIBUTION WIDTH 19.1 % (11.5-14.5); WHITE BLOOD COUNT 6.6 X10'3 (4.5-11.0)
[2017-12-11 05:55] LABS: ALANINE AMINOTRANSFERASE 138 U/L (12-78); ALBUMIN 1.8 G/DL (3.4-5.0); ALBUMIN/GLOBULIN RATIO 0.6 (1.1-1.5); ALKALINE PHOSPHATASE 103 IU/L (46-116); ANION GAP 3 (8-16); ASPARTATE AMINO TRANSFERASE 154 U/L (10-37); BILIRUBIN,TOTAL 0.8 MG/DL (0.1-1.0); BLOOD UREA NITROGEN 39 MG/DL (7-18); CALCIUM 7.5 MG/DL (8.5-10.1); CHLORIDE 95 MMOL/L (99-107); GLUCOSE 110 MG/DL (70-104); SODIUM 136 MMOL/L (135-145); TOTAL CARBON DIOXIDE 38.2 MMOL/L (24-32); TOTAL PROTEIN 4.9 G/DL (6.4-8.2); eGFR 40 ML/MIN
[2017-12-11 05:58] LABS: POTASSIUM 3.4 MMOL/L (3.5-5.1)
[2017-12-11 07:00] VITALS: BP 118/72
[2017-12-11 07:24] LABS: ANISOCYTOSIS 2+; PLATELET ESTIMATE DECREASED; POIKILOCYTOSIS 1+
[2017-12-11] MEDS: lisinopril 2.5mg tablet PO SCH (07:53)
[2017-12-11] MEDS: pantoprazole 40mg Tablet.DR PO SCH (07:53)
[2017-12-11] MEDS: furosemide 40mg/4ml inj IV SCH ×2 (07:53→20:58)
[2017-12-11] MEDS: levoFLOXACIN-Levaquin 500mg/D5 100 ML IV SCH (07:53)
[2017-12-11] MEDS: carVEDilol 3.125mg tablet PO SCH ×2 (07:53→20:58)
[2017-12-11] MEDS: lactobacillus rhamnosus 10,000 MMU CELLS/CAPSULE PO SCH ×2 (07:53→20:57)
[2017-12-11] MEDS: potassium chloride 10mEq ER tablet PO SCH (07:53)
[2017-12-11] MEDS: LACTOSE-FREE FOOD 237ML (BOOST) PO SCH ×3 (07:54→18:57)
[2017-12-11] MEDS: enoxaparin 40mg/0.4ml syringe SUBCUT SCH (08:00)
[2017-12-11] MEDS: HYDROcodone/acetaminophen 10/325mg tab PO PRN (10:31)
[2017-12-11 11:00] VITALS: BP 110/69
[2017-12-11] MEDS: morphine 4 MG/ML inj SYRINge IV PRN ×2 (11:33→15:48)
[2017-12-11 15:00] VITALS: BP 93/55
[2017-12-11 19:00] VITALS: BP 117/68
[2017-12-11 23:00] VITALS: BP 100/53
[2017-12-12] MEDS: acetaminophen 325mg tablet PO PRN (01:06)
[2017-12-12 03:00] VITALS: BP 94/57
[2017-12-12 05:51] LABS: BASOPHILS % (AUTO) 0 % (0-1); EOSINOPHILS # (AUTO) 0.1 X10'3 (0-0.9); EOSINOPHILS % (AUTO) 1.4 % (0-6); HEMATOCRIT 36.9 % (35.0-45.0); LYMPHOCYTES # (AUTO) 0.8 X10'3 (1.1-4.8); MEAN CORPUSCULAR HEMOGLOBIN 28.5 PG (27.0-31.0); MEAN CORPUSCULAR HGB CONC 32.5 % (33.0-36.5); MEAN CORPUSCULAR VOLUME 87.7 FL (78-98); MONOCYTES # (AUTO) 0.2 X10'3 (0-0.9); MONOCYTES % (AUTO) 2.5 % (2-12); NEUTROPHILS # (AUTO) 6.5 X10'3 (1.8-7.7); NEUTROPHILS % (AUTO) 86.1 % (42-75); PLATELET COUNT 76 X10'3 (140-440); RED BLOOD COUNT 4.21 X10'6 (4.20-5.60); RED CELL DISTRIBUTION WIDTH 19.4 % (11.5-14.5); WHITE BLOOD COUNT 7.6 X10'3 (4.5-11.0)
[2017-12-12 06:00] LABS: ALANINE AMINOTRANSFERASE 143 U/L (12-78); ALBUMIN 1.7 G/DL (3.4-5.0); ALBUMIN/GLOBULIN RATIO 0.5 (1.1-1.5); ALKALINE PHOSPHATASE 90 IU/L (46-116); ANION GAP 0 (8-16); ASPARTATE AMINO TRANSFERASE 184 U/L (10-37); BILIRUBIN,TOTAL 0.8 MG/DL (0.1-1.0); BLOOD UREA NITROGEN 37 MG/DL (7-18); BUN/CREATININE RATIO 31.6 (6.6-38.0); CALCIUM 7.4 MG/DL (8.5-10.1); CHLORIDE 93 MMOL/L (99-107); CREATININE 1.17 MG/DL (0.40-0.90); GLUCOSE 106 MG/DL (70-104); POTASSIUM 3.5 MMOL/L (3.5-5.1); SODIUM 132 MMOL/L (135-145); TOTAL CARBON DIOXIDE 39.4 MMOL/L (24-32); TOTAL PROTEIN 4.8 G/DL (6.4-8.2); eGFR 45 ML/MIN
[2017-12-12 07:00] VITALS: BP 107/61
[2017-12-12] MEDS: lactobacillus rhamnosus 10,000 MMU CELLS/CAPSULE PO SCH ×2 (07:20→20:09)
[2017-12-12] MEDS: pantoprazole 40mg Tablet.DR PO SCH (07:20)
[2017-12-12] MEDS: carVEDilol 3.125mg tablet PO SCH ×2 (07:20→20:00)
[2017-12-12] MEDS: potassium chloride 10mEq ER tablet PO SCH (07:20)
[2017-12-12] MEDS: furosemide 40mg/4ml inj IV SCH ×2 (07:20→20:00)
[2017-12-12] MEDS: lisinopril 2.5mg tablet PO SCH (07:20)
[2017-12-12] MEDS: HYDROcodone/acetaminophen 5mg/325mg tablet PO PRN (07:21)
[2017-12-12] MEDS: enoxaparin 40mg/0.4ml syringe SUBCUT SCH (08:00)
[2017-12-12] MEDS: LACTOSE-FREE FOOD 237ML (BOOST) PO SCH ×3 (08:15→18:42)
[2017-12-12] MEDS: morphine 4 MG/ML inj SYRINge IV PRN (09:43)
[2017-12-12 11:00] VITALS: BP 104/60
[2017-12-12] MEDS: linezolid 600mg tablet PO SCH ×2 (11:35→20:13)
[2017-12-12] MEDS: HYDROcodone/acetaminophen 10/325mg tab PO PRN (12:46)
[2017-12-12 15:00] VITALS: BP 94/44
[2017-12-12 19:00] VITALS: BP_SYST 92; BP_DIAS 45; BP_DIAS 54
[2017-12-12 23:00] VITALS: BP 92/54
[2017-12-13] MEDS: acetaminophen 325mg tablet PO PRN (00:23)
[2017-12-13 03:00] VITALS: BP 106/72
[2017-12-13] MEDS: HYDROcodone/acetaminophen 10/325mg tab PO PRN ×5 (04:48→20:19)
[2017-12-13 05:00] LABS: ALANINE AMINOTRANSFERASE 147 U/L (12-78); ALBUMIN 1.5 G/DL (3.4-5.0); ALBUMIN/GLOBULIN RATIO 0.5 (1.1-1.5); ALKALINE PHOSPHATASE 86 IU/L (46-116); ANION GAP 0 (8-16); ASPARTATE AMINO TRANSFERASE 220 U/L (10-37); BILIRUBIN,TOTAL 0.8 MG/DL (0.1-1.0); BLOOD UREA NITROGEN 35 MG/DL (7-18); BUN/CREATININE RATIO 34.7 (6.6-38.0); CALCIUM 7.2 MG/DL (8.5-10.1); CHLORIDE 91 MMOL/L (99-107); CREATININE 1.01 MG/DL (0.40-0.90); GLUCOSE 115 MG/DL (70-104); POTASSIUM 3.8 MMOL/L (3.5-5.1); SODIUM 129 MMOL/L (135-145); TOTAL CARBON DIOXIDE 38.1 MMOL/L (24-32); TOTAL PROTEIN 4.7 G/DL (6.4-8.2); eGFR 54 ML/MIN
[2017-12-13 06:00] VITALS: BP 97/58
[2017-12-13] MEDS: LACTOSE-FREE FOOD 237ML (BOOST) PO SCH ×3 (08:00→18:00)
[2017-12-13] MEDS: carVEDilol 3.125mg tablet PO SCH ×2 (08:00→19:53)
[2017-12-13] MEDS: linezolid 600mg tablet PO SCH ×2 (08:09→19:54)
[2017-12-13] MEDS: pantoprazole 40mg Tablet.DR PO SCH (08:09)
[2017-12-13] MEDS: lactobacillus rhamnosus 10,000 MMU CELLS/CAPSULE PO SCH ×2 (08:09→19:53)
[2017-12-13] MEDS: potassium chloride 10mEq ER tablet PO SCH (08:09)
[2017-12-13] MEDS: lisinopril 2.5mg tablet PO SCH (08:10)
[2017-12-13] MEDS: enoxaparin 40mg/0.4ml syringe SUBCUT SCH (08:10)
[2017-12-13] MEDS: furosemide 40mg/4ml inj IV SCH ×2 (08:10→19:54)
[2017-12-13] MEDS: levoFLOXACIN-Levaquin 500mg/D5 100 ML IV SCH (08:14)
[2017-12-13] MEDS ORDERED: FURO-150 PO (10:36)
[2017-12-13] MEDS ORDERED: COR3.125T PO (10:36)
[2017-12-13] MEDS ORDERED: LISI2.5T2 PO (10:36)
[2017-12-13] MEDS ORDERED: LINE600T32 PO (10:36)
[2017-12-13 11:00] VITALS: BP 92/54
[2017-12-13 15:00] VITALS: BP 114/63
[2017-12-13 18:00] VITALS: BP 101/56
[2017-12-13 22:00] VITALS: BP 95/68
[2017-12-14 02:00] VITALS: BP 99/49
[2017-12-14 06:00] VITALS: BP 112/54
[2017-12-14] MEDS: LACTOSE-FREE FOOD 237ML (BOOST) PO SCH (08:00)
[2017-12-14] MEDS: pantoprazole 40mg Tablet.DR PO SCH (09:14)
[2017-12-14] MEDS: enoxaparin 40mg/0.4ml syringe SUBCUT SCH (09:14)
[2017-12-14] MEDS: lactobacillus rhamnosus 10,000 MMU CELLS/CAPSULE PO SCH (09:15)
[2017-12-14] MEDS: lisinopril 2.5mg tablet PO SCH (09:15)
[2017-12-14] MEDS: carVEDilol 3.125mg tablet PO SCH (09:16)
[2017-12-14] MEDS: potassium chloride 10mEq ER tablet PO SCH (09:16)
[2017-12-14] MEDS: furosemide 40mg/4ml inj IV SCH (09:17)
[2017-12-14] MEDS: linezolid 600mg tablet PO SCH (09:17)
[2017-12-14] MEDS: HYDROcodone/acetaminophen 10/325mg tab PO PRN ×2 (09:40→15:28)
[2017-12-14 09:56] LABS: ALANINE AMINOTRANSFERASE 164 U/L (12-78); ALBUMIN 1.7 G/DL (3.4-5.0); ALBUMIN/GLOBULIN RATIO 0.5 (1.1-1.5); ALKALINE PHOSPHATASE 82 IU/L (46-116); ANION GAP -3 (8-16); ASPARTATE AMINO TRANSFERASE 250 U/L (10-37); BILIRUBIN,TOTAL 0.9 MG/DL (0.1-1.0); BLOOD UREA NITROGEN 32 MG/DL (7-18); BUN/CREATININE RATIO 32.7 (6.6-38.0); CALCIUM 7.7 MG/DL (8.5-10.1); CHLORIDE 93 MMOL/L (99-107); CREATININE 0.98 MG/DL (0.40-0.90); GLUCOSE 97 MG/DL (70-104); POTASSIUM 3.9 MMOL/L (3.5-5.1); SODIUM 131 MMOL/L (135-145); TOTAL PROTEIN 4.8 G/DL (6.4-8.2); eGFR 55 ML/MIN
[2017-12-14 10:07] LABS: TOTAL CARBON DIOXIDE 41.4 MMOL/L (24-32)
[2017-12-14 11:00] VITALS: BP 114/67
== END 2017-12-14 16:20 | disposition home or self-care (01) | DRG 871 ==
LOC: ER 09:53 → EEVIPCON 09:53 → ED HOLD 11:37 → EEVIPCON 11:37 → PCU 3S 12:47
PROVIDERS: ADMIT Internal Medicine; ATTEND Internal Medicine
DX: A41.9 Sepsis, unspecified organism (principal); G93.41 Metabolic encephalopathy; E43 Unspecified severe protein-calorie malnutrition; J96.01 Acute respiratory failure with hypoxia; I21.A1 Myocardial infarction type 2; J18.9 Pneumonia, unspecified organism; I50.23 Acute on chronic systolic (congestive) heart failure; E87.2 Acidosis; N17.9 Acute kidney failure, unspecified; N39.0 Urinary tract infection, site not specified; F32.9 Major depressive disorder, single episode, unspecified; D69.6 Thrombocytopenia, unspecified; F03.90 Unspecified dementia, unspecified severity, without behavioral disturbance, psychotic disturbance, mood disturbance, and anxiety; L89.152 Pressure ulcer of sacral region, stage 2; E78.5 Hyperlipidemia, unspecified; B95.2 Enterococcus as the cause of diseases classified elsewhere; Z16.21 Resistance to vancomycin; R74.0 Nonspecific elevation of levels of transaminase and lactic acid dehydrogenase [LDH]; E87.6 Hypokalemia; I11.0 Hypertensive heart disease with heart failure; I25.10 Atherosclerotic heart disease of native coronary artery without angina pectoris; J45.909 Unspecified asthma, uncomplicated; K21.9 Gastro-esophageal reflux disease without esophagitis; Z66 Do not resuscitate; Z79.02 Long term (current) use of antithrombotics/antiplatelets; Z79.899 Other long term (current) drug therapy; Z88.6 Allergy status to analgesic agent; Z91.012 Allergy to eggs; Z88.5 Allergy status to narcotic agent; Z91.018 Allergy to other foods; Z68.29 Body mass index [BMI] 29.0-29.9, adult
CPT/HCPCS: 36415; 36600; 70450; 71045; 76700; 80053; 81001; 82803; 83605; 83690; 83735; 83880; 84100; 84484; 85018; 85025; 85610; 87040; 87077; 87088; 87186; 93005; 94640; 94760; 96365; 96375; 97110; 97161; 97530; 99285; A6212; A6213; A6223; A6250; A6446; A9270; J1650; J1815; J1940; J1956; J2270; J2405; J2930; J7030

== ENCOUNTER 2017-12-16 16:59 | Inpatient (IN) | payer MEDICARE, MEDICAID ==
[~2017-12-16] VITALS: Ht 160 cm; Wt 54.5 kg
[~2017-12-16 16:59] MED LIST changes: +COR3.125T PO; +FURO-150 PO; +LINE600T32 PO; +LISI2.5T2 PO
[2017-12-16] MEDS ORDERED: morphine 4 MG/ML inj SYRINge IV ONE (18:05)
[2017-12-16] MEDS ORDERED: magnesium hydroxide 30ml (MOM) UD suspension PO PRN (19:05)
[2017-12-16] MEDS ORDERED: acetaminophen 325mg tablet PO PRN ×2 (19:05)
[2017-12-16] MEDS ORDERED: mag hydrox/Alum hydrox/simeth 30ml oral suspension PO PRN (19:05)
[2017-12-16] MEDS ORDERED: ondansetron/PF 4mg/2ml inj IV PRN (19:05)
[2017-12-16] MEDS ORDERED: HYDROcodone/acetaminophen 5mg/325mg tablet PO PRN (19:10)
[2017-12-16] MEDS ORDERED: CARV3.126 PO (19:11)
[2017-12-16 19:13] LABS: BASOPHILS % (AUTO) 0 % (0-1); EOSINOPHILS % (AUTO) 0 % (0-6); HEMATOCRIT 45.9 % (35.0-45.0); LYMPHOCYTES # (AUTO) 2.5 X10'3 (1.1-4.8); LYMPHOCYTES % (AUTO) 18.5 % (21-51); MEAN CORPUSCULAR HEMOGLOBIN 28.4 PG (27.0-31.0); MEAN CORPUSCULAR HGB CONC 32.7 % (33.0-36.5); MEAN PLATELET VOLUME 9.5 FL (7.4-10.4); MONOCYTES # (AUTO) 0.3 X10'3 (0-0.9); MONOCYTES % (AUTO) 2.4 % (2-12); NEUTROPHILS # (AUTO) 10.5 X10'3 (1.8-7.7); NEUTROPHILS % (AUTO) 79.1 % (42-75); PLATELET COUNT 126 X10'3 (140-440); RED BLOOD COUNT 5.27 X10'6 (4.20-5.60); RED CELL DISTRIBUTION WIDTH 19.7 % (11.5-14.5); WHITE BLOOD COUNT 13.3 X10'3 (4.5-11.0)
[2017-12-16 19:39] LABS: ALANINE AMINOTRANSFERASE 200 U/L (12-78); ALBUMIN/GLOBULIN RATIO 0.6 (1.1-1.5); ALKALINE PHOSPHATASE 108 IU/L (46-116); ANION GAP 2 (8-16); ASPARTATE AMINO TRANSFERASE 278 U/L (10-37); BILIRUBIN,TOTAL 1.3 MG/DL (0.1-1.0); BLOOD UREA NITROGEN 33 MG/DL (7-18); BUN/CREATININE RATIO 35.1 (6.6-38.0); CALCIUM 8.2 MG/DL (8.5-10.1); CHLORIDE 89 MMOL/L (99-107); CREATININE 0.94 MG/DL (0.40-0.90); GLUCOSE 91 MG/DL (70-104); POTASSIUM 3.9 MMOL/L (3.5-5.1); SODIUM 129 MMOL/L (135-145); TOTAL CARBON DIOXIDE 37.7 MMOL/L (24-32); TOTAL PROTEIN 5.4 G/DL (6.4-8.2); TROPONIN I 0.09 NG/ML (0.0-0.05); eGFR 58 ML/MIN
[2017-12-16] MEDS: linezolid 600mg tablet PO SCH (20:00)
[2017-12-16] MEDS: lactobacillus rhamnosus 10,000 MMU CELLS/CAPSULE PO SCH (20:24)
[2017-12-16] MEDS: furosemide 20MG tablet PO SCH (20:24)
[2017-12-16] MEDS: carVEDilol 3.125mg tablet PO SCH (20:24)
[2017-12-16] MEDS: budesonide 0.5mg/2ml UD nebule IH SCH (20:52)
[2017-12-16] MEDS ORDERED: temazepam 15mg capsule PO PRN (21:00)
[2017-12-16 21:35] LABS: ANISOCYTOSIS 2+; HYPOCHROMASIA 1+; PLATELET ESTIMATE DECREASED; TOTAL CELLS COUNTED 100
[2017-12-16 21:36] LABS: LARGE PLATELETS FEW
[2017-12-17 01:13] VITALS: BP 94/55
[2017-12-17 05:00] VITALS: BP 109/61
[2017-12-17] MEDS: HYDROcodone/acetaminophen 5mg/325mg tablet PO PRN ×2 (05:20→11:33)
[2017-12-17 06:05] LABS: CLARITY,URINE CLEAR (Clear); COLOR,URINE YELLOW (Yellow); GLUCOSE, URINE NEGATIVE (Neg); KETONES,URINE NEGATIVE (Neg); LEUKOCYTE ESTERASE ,URINE NEGATIVE (Neg); NITRITES, URINE NEGATIVE (Neg); OCCULT BLOOD,URINE LARGE (Neg); PH,URINE 5.5 (4.8-8.0); PROTEIN,URINE NEGATIVE (Neg)
[2017-12-17 06:13] LABS: UA COLLECTION TYPE FOLEY CATH
[2017-12-17 06:14] LABS: RBC,URINE 0-2 /HPF (0-2)
[2017-12-17 06:15] LABS: BACTERIA,URINE NONE SEEN /HPF (Neg); MUCUS STRANDS FEW /LPF (Neg); SQUAMOUS EPITHELIAL CELL,UR FEW /LPF (FEW); YEAST FEW /HPF (NEGATIVE)
[2017-12-17 07:10] LABS: BASOPHILS % (AUTO) 0.4 % (0-1); EOSINOPHILS # (AUTO) 0.2 X10'3 (0-0.9); EOSINOPHILS % (AUTO) 1.7 % (0-6); HEMATOCRIT 39.1 % (35.0-45.0); HEMOGLOBIN 12.5 g/dl (12.0-16.0); MEAN CORPUSCULAR VOLUME 87.3 FL (78-98); MONOCYTES # (AUTO) 0.5 X10'3 (0-0.9); MONOCYTES % (AUTO) 5.2 % (2-12); NEUTROPHILS # (AUTO) 6.7 X10'3 (1.8-7.7); NEUTROPHILS % (AUTO) 71.7 % (42-75); PLATELET COUNT 103 X10'3 (140-440); RED BLOOD COUNT 4.48 X10'6 (4.20-5.60); RED CELL DISTRIBUTION WIDTH 19.4 % (11.5-14.5); WHITE BLOOD COUNT 9.3 X10'3 (4.5-11.0)
[2017-12-17] MEDS: budesonide 0.5mg/2ml UD nebule IH SCH ×2 (07:20→20:45)
[2017-12-17] MEDS: albuterol 2.5 MG/3 ML nebule NEB SCH ×4 (07:20→20:45)
[2017-12-17 07:21] LABS: ALBUMIN 1.7 G/DL (3.4-5.0); ANION GAP -1 (8-16); BLOOD UREA NITROGEN 34 MG/DL (7-18); BUN/CREATININE RATIO 33.7 (6.6-38.0); CALCIUM 7.4 MG/DL (8.5-10.1); CHLORIDE 89 MMOL/L (99-107); CREATININE 1.01 MG/DL (0.40-0.90); GLUCOSE 114 MG/DL (70-104); POTASSIUM 3.9 MMOL/L (3.5-5.1); SODIUM 126 MMOL/L (135-145); TOTAL CARBON DIOXIDE 37.8 MMOL/L (24-32); eGFR 54 ML/MIN
[2017-12-17] MEDS: lisinopril 2.5mg tablet PO SCH (08:00)
[2017-12-17] MEDS: atorvastatin 20mg tablet PO SCH (08:53)
[2017-12-17] MEDS: pantoprazole 40mg Tablet.DR PO SCH (08:53)
[2017-12-17] MEDS: carVEDilol 3.125mg tablet PO SCH ×2 (08:53→19:26)
[2017-12-17] MEDS: furosemide 20MG tablet PO SCH ×2 (08:53→19:26)
[2017-12-17] MEDS: lactobacillus rhamnosus 10,000 MMU CELLS/CAPSULE PO SCH ×2 (08:53→19:26)
[2017-12-17] MEDS: clopidogrel 75mg tablet PO SCH (08:53)
[2017-12-17] MEDS: linezolid 600mg tablet PO SCH ×2 (08:53→19:26)
[2017-12-17 10:00] VITALS: BP 99/61
[2017-12-17 17:00] VITALS: BP 94/56
[2017-12-17] MEDS: azithromycin 250mg tablet PO SCH (19:11)
[2017-12-17] MEDS: normal saline 1000ml 1,000 ML IV SCH (19:12)
[2017-12-17 19:31] VITALS: BP 93/55
[2017-12-17 23:00] VITALS: BP 75/47
[2017-12-18] MEDS: normal saline 1000ml 1,000 ML IV SCH ×2 (02:55→04:06)
[2017-12-18 06:47] LABS: ALBUMIN 1.5 G/DL (3.4-5.0); ANION GAP 4 (8-16); BLOOD UREA NITROGEN 36 MG/DL (7-18); CALCIUM 7.4 MG/DL (8.5-10.1); CHLORIDE 88 MMOL/L (99-107); CREATININE 1.03 MG/DL (0.40-0.90); GLUCOSE 101 MG/DL (70-104); SODIUM 124 MMOL/L (135-145); TOTAL CARBON DIOXIDE 32.4 MMOL/L (24-32); eGFR 52 ML/MIN
[2017-12-18 06:48] LABS: POTASSIUM 4.1 MMOL/L (3.5-5.1)
[2017-12-18] MEDS: lactobacillus rhamnosus 10,000 MMU CELLS/CAPSULE PO SCH ×2 (07:24→19:53)
[2017-12-18] MEDS: budesonide 0.5mg/2ml UD nebule IH SCH ×2 (07:24→19:35)
[2017-12-18] MEDS: linezolid 600mg tablet PO SCH (07:24)
[2017-12-18] MEDS: albuterol 2.5 MG/3 ML nebule NEB SCH ×4 (07:24→19:39)
[2017-12-18] MEDS: lisinopril 2.5mg tablet PO SCH (08:00)
[2017-12-18] MEDS: carVEDilol 3.125mg tablet PO SCH ×2 (08:00→19:43)
[2017-12-18] MEDS: azithromycin 250mg tablet PO SCH (08:28)
[2017-12-18] MEDS: atorvastatin 20mg tablet PO SCH (08:28)
[2017-12-18] MEDS: pantoprazole 40mg Tablet.DR PO SCH (08:29)
[2017-12-18] MEDS: clopidogrel 75mg tablet PO SCH (08:29)
[2017-12-18 08:32] LABS: BASOPHILS % (AUTO) 0 % (0-1); EOSINOPHILS # (AUTO) 0.1 X10'3 (0-0.9); EOSINOPHILS % (AUTO) 1.3 % (0-6); HEMATOCRIT 37.2 % (35.0-45.0); LYMPHOCYTES # (AUTO) 2.6 X10'3 (1.1-4.8); LYMPHOCYTES % (AUTO) 24.3 % (21-51); MEAN CORPUSCULAR HEMOGLOBIN 28.2 PG (27.0-31.0); MEAN CORPUSCULAR HGB CONC 32.4 % (33.0-36.5); MEAN PLATELET VOLUME 9.4 FL (7.4-10.4); MONOCYTES # (AUTO) 0.7 X10'3 (0-0.9); MONOCYTES % (AUTO) 6.3 % (2-12); NEUTROPHILS # (AUTO) 7.3 X10'3 (1.8-7.7); NEUTROPHILS % (AUTO) 68.1 % (42-75); PLATELET COUNT 82 X10'3 (140-440); RED BLOOD COUNT 4.28 X10'6 (4.20-5.60); RED CELL DISTRIBUTION WIDTH 19.3 % (11.5-14.5); WHITE BLOOD COUNT 10.7 X10'3 (4.5-11.0)
[2017-12-18] MEDS: furosemide 20MG tablet PO SCH ×2 (08:33→19:43)
[2017-12-18] MEDS: HYDROcodone/acetaminophen 5mg/325mg tablet PO PRN (14:06)
[2017-12-18] MEDS ORDERED: levoFLOXACIN 500mg tablet PO SCH (16:45)
[2017-12-18 18:00] VITALS: BP 91/43
[2017-12-18 19:42] VITALS: BP 87/47
[2017-12-18 22:00] VITALS: BP 84/49
[2017-12-19] MEDS: normal saline 1000ml 1,000 ML IV SCH (04:23)
[2017-12-19 06:00] VITALS: BP 98/64
[2017-12-19 06:17] LABS: BASOPHILS % (AUTO) 0.2 % (0-1); EOSINOPHILS # (AUTO) 0.2 X10'3 (0-0.9); EOSINOPHILS % (AUTO) 1.7 % (0-6); HEMATOCRIT 39.2 % (35.0-45.0); HEMOGLOBIN 12.8 g/dl (12.0-16.0); LYMPHOCYTES # (AUTO) 2.9 X10'3 (1.1-4.8); LYMPHOCYTES % (AUTO) 26.2 % (21-51); MEAN CORPUSCULAR HEMOGLOBIN 28.4 PG (27.0-31.0); MEAN CORPUSCULAR HGB CONC 32.7 % (33.0-36.5); MEAN PLATELET VOLUME 9.1 FL (7.4-10.4); MONOCYTES # (AUTO) 0.8 X10'3 (0-0.9); MONOCYTES % (AUTO) 7.4 % (2-12); NEUTROPHILS # (AUTO) 7.1 X10'3 (1.8-7.7); NEUTROPHILS % (AUTO) 64.5 % (42-75); PLATELET COUNT 77 X10'3 (140-440); RED CELL DISTRIBUTION WIDTH 19.3 % (11.5-14.5)
[2017-12-19 06:48] LABS: ANISOCYTOSIS 2+; PLATELET ESTIMATE DECREASED
[2017-12-19] MEDS: budesonide 0.5mg/2ml UD nebule IH SCH (06:57)
[2017-12-19] MEDS: albuterol 2.5 MG/3 ML nebule NEB SCH ×3 (06:57→15:04)
[2017-12-19] MEDS: azithromycin 250mg tablet PO SCH (07:59)
[2017-12-19 08:00] VITALS: BP 101/55
[2017-12-19] MEDS: lisinopril 2.5mg tablet PO SCH (08:00)
[2017-12-19] MEDS: clopidogrel 75mg tablet PO SCH (08:01)
[2017-12-19 08:02] LABS: ALANINE AMINOTRANSFERASE 173 U/L (12-78); ALBUMIN 1.8 G/DL (3.4-5.0); ALBUMIN/GLOBULIN RATIO 0.6 (1.1-1.5); ALKALINE PHOSPHATASE 87 IU/L (46-116); ANION GAP 4 (8-16); ASPARTATE AMINO TRANSFERASE 173 U/L (10-37); BILIRUBIN,TOTAL 0.8 MG/DL (0.1-1.0); BLOOD UREA NITROGEN 34 MG/DL (7-18); BUN/CREATININE RATIO 30.6 (6.6-38.0); CALCIUM 7.5 MG/DL (8.5-10.1); CHLORIDE 88 MMOL/L (99-107); CREATININE 1.11 MG/DL (0.40-0.90); GLUCOSE 91 MG/DL (70-104); PHOSPHORUS 3.1 MG/DL (2.3-4.5); POTASSIUM 4.5 MMOL/L (3.5-5.1); SODIUM 123 MMOL/L (135-145); TOTAL CARBON DIOXIDE 31.4 MMOL/L (24-32); TOTAL PROTEIN 4.9 G/DL (6.4-8.2); eGFR 48 ML/MIN
[2017-12-19] MEDS: pantoprazole 40mg Tablet.DR PO SCH (08:02)
[2017-12-19] MEDS: atorvastatin 20mg tablet PO SCH (08:02)
[2017-12-19] MEDS: lactobacillus rhamnosus 10,000 MMU CELLS/CAPSULE PO SCH (08:02)
[2017-12-19] MEDS: carVEDilol 3.125mg tablet PO SCH (08:03)
[2017-12-19] MEDS: furosemide 20MG tablet PO SCH (08:03)
[2017-12-19 08:15] LABS: HBSAG SCREEN Negative (Negative); HEP A AB, IGM Negative (Negative); HEP B CORE AB, IGM Negative (Negative); HEPATITIS C ANTIBODY <0.1 s/co ratio (0.0-0.9)
[2017-12-19] MEDS ORDERED: magnesium 4gm in 100ml NS 100 ML IV PRN (08:20)
[2017-12-19] MEDS ORDERED: magnesium 1gm/100ml D5W IVPB 100 ML IV PRN (08:20)
[2017-12-19] MEDS ORDERED: potassium Cl 40MEQ/NS 500ml 500 ML IV PRN ×2 (08:20)
[2017-12-19] MEDS ORDERED: potassium Cl 20 mEq SR tablet PO PRN ×2 (08:20)
[2017-12-19] MEDS ORDERED: magnesium Cl slow-release 64mg tablet PO PRN (08:20)
[2017-12-19] MEDS ORDERED: heparin 10,000 units/1 ML INJ IV ONE ×2 (09:00→09:05)
[2017-12-19] MEDS ORDERED: magnesium 4gm in 100ml NS 100 ML IV ONE (09:00)
[2017-12-19] MEDS ORDERED: heparin 10,000 units/1 ML INJ IV PRN (09:00)
[2017-12-19 10:00] VITALS: BP 96/62
[2017-12-20] MEDS ORDERED: K and/or MAG REPLACEMENT MC SCH (08:00)
== END 2017-12-19 16:50 | disposition hospice, home (50) | DRG 70 ==
LOC: ER 17:00 → ED HOLD 19:01 → ORTHO 4S 21:50 → OBSVTOIN 12-18 08:00
PROVIDERS: ADMIT Hospitalist; ATTEND Family Medicine
DX: G93.40 Encephalopathy, unspecified (principal); J18.1 Lobar pneumonia, unspecified organism; E43 Unspecified severe protein-calorie malnutrition; E87.1 Hypo-osmolality and hyponatremia; I13.0 Hypertensive heart and chronic kidney disease with heart failure and stage 1 through stage 4 chronic kidney disease, or unspecified chronic kidney disease; E83.42 Hypomagnesemia; F03.90 Unspecified dementia, unspecified severity, without behavioral disturbance, psychotic disturbance, mood disturbance, and anxiety; I25.10 Atherosclerotic heart disease of native coronary artery without angina pectoris; J45.909 Unspecified asthma, uncomplicated; K21.9 Gastro-esophageal reflux disease without esophagitis; R62.7 Adult failure to thrive; F32.9 Major depressive disorder, single episode, unspecified; G89.29 Other chronic pain; M79.89 Other specified soft tissue disorders; R26.81 Unsteadiness on feet; N18.3 Chronic kidney disease, stage 3 (moderate); I73.9 Peripheral vascular disease, unspecified; L89.92 Pressure ulcer of unspecified site, stage 2; Z51.5 Encounter for palliative care; Z66 Do not resuscitate; I50.9 Heart failure, unspecified; Z91.012 Allergy to eggs; Z74.01 Bed confinement status; Z88.8 Allergy status to other drugs, medicaments and biological substances; Z91.018 Allergy to other foods; Z88.6 Allergy status to analgesic agent; Z79.899 Other long term (current) drug therapy; Z68.21 Body mass index [BMI] 21.0-21.9, adult
CPT/HCPCS: 36415; 71045; 80048; 80053; 81001; 83605; 83735; 84100; 84484; 85025; 86705; 86706; 86709; 86803; 87040; 87070; 87088; 87340; 93005; 93922; 93925; 93970; 94640; 94760; 97110; 97162; 97530; A4315; A6209; A6212; A6213; A6446; G0378; J2270; J3475; J7030; J7626

== ENCOUNTER 2021-02-03 09:49 | Day surgery (SDC) | payer MEDICARE, MEDICAID ==
[2021-02-01 12:35] LABS: BASOPHILS % (AUTO) 0.8 % (0-1); EOSINOPHILS # (AUTO) 0.2 X10'3 (0-0.9); EOSINOPHILS % (AUTO) 4.1 % (0-6); LYMPHOCYTES # (AUTO) 1.6 X10'3 (1.1-4.8); LYMPHOCYTES % (AUTO) 32.5 % (21-51); MEAN CORPUSCULAR HEMOGLOBIN 32.9 PG (27.0-31.0); MEAN CORPUSCULAR HGB CONC 32.3 g/dL (33.0-36.5); MEAN CORPUSCULAR VOLUME 101.8 FL (78-98); MEAN PLATELET VOLUME 8.1 FL (7.4-10.4); MONOCYTES # (AUTO) 0.4 X10'3 (0-0.9); MONOCYTES % (AUTO) 7.9 % (2-12); NEUTROPHILS # (AUTO) 2.7 X10'3 (1.8-7.7); NEUTROPHILS % (AUTO) 54.7 % (42-75); PRE OP HEMATOCRIT 35.2 % (35.0-45.0); PRE OP HEMOGLOBIN 11.4 g/dL (12.0-16.0); PRE OP PLATELET COUNT 231 X10'3 (140-440); RED BLOOD COUNT 3.46 X10'6 (4.20-5.60)
[2021-02-01 12:51] LABS: ALKALINE PHOSPHATASE 83 IU/L (46-116); BLOOD UREA NITROGEN 13 MG/DL (7-18); BUN/CREATININE RATIO 12.7 (6.6-38.0); CALCIUM 9.2 MG/DL (8.5-10.1); CHLORIDE 106 MMOL/L (99-107); CREATININE 1.02 MG/DL (0.40-0.90); PRE OP ALT 33 U/L (30-65); PRE OP ANION GAP 11 (8-16); PRE OP AST 41 U/L (10-37); PRE OP BILIRUB, TOTAL 0.6 MG/DL (0.0-1.0); PRE OP GLUCOSE 101 MG/DL (70-104); PRE OP POTASSIUM 4.2 MMOL/L (3.4-5.1); PRE OP SODIUM 140 MMOL/L (135-145); TOTAL CARBON DIOXIDE 22.6 MMOL/L (24-32); eGFR 53 ML/MIN
[2021-02-01 12:55] LABS: CLARITY,URINE CLOUDY (Clear); COLOR,URINE STRAW (Yellow); UA COLLECTION TYPE CLN CATCH MIDSTREAM
[2021-02-01 12:56] LABS: GLUCOSE, URINE NEGATIVE (Neg); KETONES,URINE NEGATIVE (Neg); NITRITES, URINE NEGATIVE (Neg); OCCULT BLOOD,URINE NEGATIVE (Neg); PROTEIN,URINE NEGATIVE (Neg); UROBILINOGEN,URINE 0.2 E.U/dL (0.2-1.0)
[2021-02-01 12:57] LABS: LEUKOCYTE ESTERASE ,URINE MODERATE (Neg)
[2021-02-01 13:09] LABS: BACTERIA,URINE 4+ /HPF (Neg); RBC,URINE NONE SEEN /HPF (0-2); WBC,URINE 50-100 /HPF (0-4)
[2021-02-01 13:10] LABS: SQUAMOUS EPITHELIAL CELL,UR MODERATE /LPF (FEW); WBC CLUMPS,URINE MODERATE /HPF (NEGATIVE)
[~2021-02-03] VITALS: Ht 152.4 cm; Wt 42.0 kg
[2021-02-03] VITALS (9 sets, daily range): BP systolic 139–164; BP diastolic 70–100
[~2021-02-03 09:49] MED LIST changes: +ACET-890 PO; -ALBU2.5V7 NEB; -ATOR20TA66 PO; -BUDE0.5A3 IH; +BUPR-317 PO; +CARV3.122 PO; +CLOP75TA15 PO; -CLOP75TA35 PO; -COR3.125T PO; +DIPH25CA52 PO; +DOCUMENT DATE & TIME OF BETA-BLOCKER PO ONE; +ESCI-8 PO; -FURO-150 PO; -HYDR-569 PO; -LACT1CAP26 PO; -LINE600T32 PO; -LISI2.5T2 PO; +LOPE2CAP PO; +NITR0.4T48 SL; -ONDA4TAB12 PO; -PANT40TA4 PO; +RALO60TA13 PO; +ceFOXitin 2GM-NS 100mL ADDvant 100 ML IV ONE; +famotidine 20mg tablet PO ONE; +ringers solution, lacted 1,000 ML IV SCH
[2021-02-03] MEDS ORDERED: HYDROcodone/acetaminophen 5mg/325mg tablet PO ONE ×2 (11:10→15:50)
[2021-02-03] MEDS ORDERED: BUPIVAcaine 0.5% inj/PF 30 ML ONE (13:50)
[2021-02-03] MEDS ORDERED: BUPIVAcaine 0.5% inj/PF 30 ml vial IJ ONE (13:53)
[2021-02-03] MEDS ORDERED: sevoflurane 250ml liquid IH ONE (13:58)
[2021-02-03] MEDS ORDERED: ringers solution, lacted 1,000 ML IV SCH (14:00)
[2021-02-03] MEDS ORDERED: morphine 2 MG/ML inj. syringe IV PRN (14:00)
[2021-02-03] MEDS ORDERED: ondansetron/PF 4mg/2ml inj IV PRN (14:00)
[2021-02-03] MEDS ORDERED: meperidine/PF 25mg/ml syringe IV PRN ×3 (14:00)
[2021-02-03] MEDS ORDERED: proCHLORperazine 10 MG/2 ml inj IV PRN (14:00)
[2021-02-03] MEDS ORDERED: morphine 4 MG/ML inj SYRINge IV PRN (14:00)
[2021-02-03] MEDS ORDERED: fentaNYL/PF 50MCG/1 ML 2ML syringe ONE (14:05)
[2021-02-03] MEDS ORDERED: midazolam 1 mg/ML 2ml injection ONE (14:06)
[2021-02-03] MEDS ORDERED: rocuronium 10mg/ml inj IV ONE (14:55)
[2021-02-03] MEDS ORDERED: dexamethasone sod phosphate 4mg/ml inj. ONE (14:55)
[2021-02-03] MEDS ORDERED: propofol inj 20 ML IV ONE (14:55)
[2021-02-03] MEDS ORDERED: neostigmine methylsulfate 1 MG/ML 10ml vial ONE (15:09)
[2021-02-03] MEDS ORDERED: glycopyrrolate 0.2mg/ml inj ONE (15:09)
--- NOTE | 2021-02-03 15:11 | NUR ---
ASSUME CARE PT AWAKE MOANING STATES ABD PAIN 02/21 LAP SITES TO ABD X4 SECURED WITH SURGICAL GLUE CDI, IV TO LT FA 20G INTACT WITH IVF INFUSING WITHOUT DIFF. CONT TO MONITOR. Addendum: 02/03/21 at 1541 by Caty Watts RN Amended: Links added.
--- NOTE | 2021-02-03 16:04 | NUR ---
PT BJ WANG'S C/O SURG SITE PAIN 02/21 MOANING MED WITH NORCO PO X2 NO DISTRESS CONT TO MONITOR. Addendum: 02/03/21 at 1604 by Caty Watts RN Amended: Links added.
--- NOTE | 2021-02-03 16:31 | NUR ---
PT STATES ABD PAIN BETTER 09/21 BJ PO'S VSS NO DISTRESS MEETS CRITERIA TO GO HOME. Addendum: 02/03/21 at 1631 by Caty Watts RN Amended: Links added.
--- NOTE | 2021-02-03 16:45 | NUR ---
PT STATES COMFORTABLE WITH GOING HOME VSS NO DISTRESS BJ POS MEETS CRITERIA TO GO HOME INSTR GIVEN TO GRANDDAUGHTER. Addendum: 02/03/21 at 1712 by Caty Watts RN Amended: Links added.
== END 2021-02-03 16:51 | disposition home or self-care (01) ==
LOC: PAS 09:49
PROVIDERS: ATTEND Surgery
DX: K80.00 Calculus of gallbladder with acute cholecystitis without obstruction (principal); K85.90 Acute pancreatitis without necrosis or infection, unspecified; R10.9 Unspecified abdominal pain; Z20.822 Contact with and (suspected) exposure to COVID-19; Z87.891 Personal history of nicotine dependence
CPT/HCPCS: 36415; 47562; 80053; 81001; 82948; 85025; 87077; 87088; 87186; 87635; C9803; J0694; J1100; J2175; J2250; J2270; J2405; J2704; J2710; J3010; J7120; Z7506; Z7508; Z7512; 88304; A4215; A4618; A7000; J3490